=== PATIENT | female | born 1950 | race Caucasian/White ===

== ENCOUNTER 2017-01-08 19:36 | Observation (INO) ==
[2017-01-08] MEDS ORDERED: 0.9 % Sodium Chloride 1,000 ML ONE (19:53)
[2017-01-08] MEDS ORDERED: *HR* Promethazine 25 MG/ML VIAL IVP ONE (20:27)
[2017-01-08] MEDS ORDERED: 0.9 % Sodium Chloride 1,000 ML IVC ONE (20:27)
[2017-01-08] MEDS ORDERED: Ketorolac 30 MG/ML VIAL IV ONE (20:27)
--- NOTE | 2017-01-08 20:28 | Emergency Department Note ---
Disposition Clinical Impression: Chest pain Disposition: Admitted As Inpatient Condition: Fair Referrals: Edie Andrea MD [Primary Care Provider] - Forms: ED Satisfaction Letter Time of Disposition: 00:03 (chani rodríguez) Chest Pain HPI - General Chief Complaint: ED Chest Pain Stated Complaint: Chest Pain Time Seen by Provider: 01/08/17 19:37 Source: patient Mode of arrival: ambulatory Limitations: no limitations Vital Signs Reviewed: Yes Nursing Notes Reviewed: Yes - History of Present Illness HPI Narrative: History of chest pestered intermittently comes and goes and nausea no vomiting no diaphoresis no rash lesions pain worse with respiration worse with movement nothing seems to make it better this is to make it worse his been having symptoms off and on for Pt complaint: chest pain 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 Denies: vomiting, diaphoresis, dyspnea, sense of impending doom, syncope, fever, cough, leg swelling Treatments prior to arrival chest pain: aspirin - Related Data Home Medications Medication Instructions Recorded Confirmed Gabapentin [Neurontin] 300 mg PO TID 05/14/15 09/16/16 Tamoxifen [Nolvadex] 20 mg PO DAILY 05/14/15 09/16/16 Venlafaxine [Effexor] 225 mg PO DAILY 05/14/15 09/16/16 Zolpidem [Ambien] 10 mg PO HS 05/14/15 09/16/16 Docusate [Colace] 200 mg PO HS PRN 08/25/15 09/16/16 Tizanidine [Zanaflex] 4 mg PO TID 08/25/15 09/16/16 Venlafaxine HCl [Venlafaxine HCl 150 mg PO DAILY 10/05/15 09/16/16 ER] Isosorbide MONOnitrate (24 HR) 30 mg PO DAILY 10/23/15 09/16/16 [Imdur] SUMAtriptan Succinate [Imitrex] 100 mg PO DAILY PRN 10/23/15 09/16/16 Amlodipine [Norvasc] 5 mg PO DAILY 06/15/16 09/16/16 Aspirin 325 mg PO DAILY 06/15/16 09/16/16 Atorvastatin [Lipitor] 20 mg PO HS 06/15/16 09/16/16 Dapsone 100 mg PO QAM 06/15/16 09/16/16 DiphenhydraMINE [Benadryl] 25 mg PO Q4HR 06/15/16 09/16/16 Ferrous Sulfate 65 mg PO QAM 06/15/16 09/16/16 Ibuprofen [Motrin] 600 mg PO Q6HR PRN 06/15/16 09/16/16 Levothyroxine [Synthroid] 25 mcg PO 0630 06/15/16 09/16/16 Lisinopril [Zestril] 10 mg PO DAILY 06/15/16 09/16/16 Metformin [Glucophage] 500 mg PO BIDWM 06/15/16 09/16/16 Nitroglycerin [Nitrostat] 0.4 mg SL PRN PRN 06/15/16 09/16/16 Omeprazole [PriLOSEC] 20 mg PO BIDAC 06/15/16 09/16/16 Prochlorperazine Maleate 10 mg PO Q6HR 06/15/16 09/16/16 [Compazine] Sennosides [Senna] 8.6 mg PO BID 06/15/16 09/16/16 Loratadine [Claritin] 10 mg PO QAM 09/16/16 09/16/16 Previous Rx's Medication Instructions Recorded Metoprolol [Lopressor] 25 mg PO BID #60 tablet 10/27/15 Allergies Allergy/AdvReac Type Severity Reaction Status Date / Time acetaminophen [From Tylenol] Allergy See Verified 08/25/15 16:09 Comments latex Allergy See Verified 08/25/15 16:09 Comments All systems ED: reviewed and negative except as stated. Constitutional: Denies: fever, chills, weakness Eyes: Denies: eye pain ENT ED: Denies: ear pain, congestion Cardiovascular: Reports: chest pain, dyspnea on exertion. Denies: palpitations Respiratory: Denies: cough, dyspnea, wheezes Gastrointestinal: Denies: abdominal pain, nausea, vomiting Genitourinary: Denies: urgency Musculoskeletal: Denies: neck pain Integumentary: Denies: abrasion Neurological: Denies: headache Psychiatric: Denies: anxiety Endocrine: Denies: heat or cold intolerance Chest Pain PMH - Past Medical History Medical history: Reports: arthritis, cancer, CHF, hyperlipidemia, hypertension, liver disease, migraine, myocardial infarction, TIA Surgical history: Reports: appendectomy, cancer surgery, other Psychiatric history: Reports: anxiety, depression 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, 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 - Social History Smoking Status: Never smoker Alcohol use: Reports: none Drug use: Reports: none Physical Exam - General Limitations: no limitations, altered mental status General appearance: alert, in no apparent distress, appears intoxicated - Head Head exam: normocephalic, normal inspection - Eye Eye exam: Present: normal appearance, PERRL, EOMI - ENT ENT exam: normal exam, normal oropharynx, mucous membranes moist - Neck Neck exam: Present: normal inspection, full ROM, trachea midline - Chest Chest inspection: Present: normal inspection, symmetric chest wall rise - Respiratory Respiratory exam: Present: normal lung sounds bilaterally - Cardiovascular Cardiovascular exam: Present: regular rate, normal rhythm, normal heart sounds - Abdominal Exam Abdominal exam: Present: soft, Non-Tender, normal bowel sounds. Absent: mass, pulsatile mass - Extremities Exam Extremities exam: Present: normal inspection, full ROM, tenderness, normal capillary refill - Expanded Lower Extremity Exam Gait: observed and normal - Back Exam Back exam: Present: normal inspection, full ROM. Absent: muscle spasm - Neurological Exam Neurological exam: Present: alert, oriented X3, CN II-XII intact, normal gait - Psychiatric Psychiatric exam: Present: normal affect, normal mood, anxious - Skin Skin exam: Present: warm, dry, intact, normal color Course Course Narrative: Patient was seen and examined patient's been resting comfortably during her period of time here in the emergency room and asked repeatedly after arrival here to the emergency room her pain is dropped to the 3-4 out of 10 nothing seems to make better nothing since to make worse we repeated troponin at 2 hours initial troponin because of the episode of chest pain and make sure there was no other elevated enzymes with a repeat troponin being negative and the PE study that having an elevated d-dimer with a PE study be negative the patient was admitted for observation patient was transferred to [facility] for further management Vital Signs Temperature 97.4 F L 01/08/17 19:37 Pulse Rate 90 01/08/17 19:37 Respiratory Rate 16 01/08/17 19:37 Blood Pressure 77/44 01/08/17 19:37 O2 Sat by Pulse Oximetry 98 01/08/17 19:37 Temperature 97.4 F L 01/08/17 19:37 Pulse Rate 92 01/08/17 21:47 Respiratory Rate 16 01/08/17 21:47 Blood Pressure 175/70 01/08/17 21:47 O2 Sat by Pulse Oximetry 94 01/08/17 21:47 Oxygen Delivery Oxygen Delivery Room Air Chest Pain - Differential Diagnosis Likely: chest pain - Medical Records Medical records reviewed: Yes I reviewed the patient's medical records. - Lab Data Lab results reviewed: Yes I reviewed the patient's lab results. Result diagrams: 01/08/17 20:51 01/08/17 20:51 Lab Results 01/08/17 01/08/17 01/08/17 Range/Units 20:51 20:51 20:51 WBC 8.3 (4.3-11.1) K/mcL RBC 4.18 (3.82-4.97) M/mcL Hgb 12.4 (11.5-15.4) g/dL Hct 38.7 (35.3-44.9) % MCV 92.6 (83.0-100.0) fL MCH 29.7 (28.0-33.3) pg MCHC 32.0 (31.6-35.5) g/dL RDW 13.6 (11.5-14.5) % Plt Count 273 (140-400) K/mcL MPV 10.2 (9.4-12.4) fL Immature Gran % 0.2 (0-4) % Seg Neutrophils % 55.0 % Lymphocytes % 32.2 % Monocytes % 10.7 % Eosinophils % 1.4 % Basophils % 0.5 % Neutrophils # 4.6 (1.6-8.9) K/mcL Lymphocytes # 2.7 (0.6-4.6) K/mcL Monocytes # 0.9 (0.0-1.3) K/mcL Eosinophils # 0.1 (0.0-0.6) K/mcL Basophils # 0.0 (0.0-0.2) K/mcL PT (9.4-12.1) Seconds INR APTT 31.7 (26.0-36.0) Seconds D-Dimer 752 H (0-500) ng/mLFEU Sodium 142 (136-145) mEq/L Potassium 3.5 (3.5-4.5) mEq/L Chloride 108 (98-109) mEq/L Carbon Dioxide 23 (19-29) mEq/L BUN 14 (7-20) mg/dL Creatinine 0.84 (0.57-1.11) mg/dL Est GFR ( Amer) > 60 (> 60) Est GFR (Non-Af Amer) > 60 (> 60) BUN/Creatinine Ratio 17 (6-26) Glucose 96 (70-99) mg/dL Calculated Osmolality 294 (280-300) Calcium 8.9 (8.6-10.8) mg/dL Troponin I (0-0.03) ng/mL TSH (0.350-4.840) mcIU/mL 01/08/17 01/08/17 01/08/17 Range/Units 20:51 20:51 20:51 WBC (4.3-11.1) K/mcL RBC (3.82-4.97) M/mcL Hgb (11.5-15.4) g/dL Hct (35.3-44.9) % MCV (83.0-100.0) fL MCH (28.0-33.3) pg MCHC (31.6-35.5) g/dL RDW (11.5-14.5) % Plt Count (140-400) K/mcL MPV (9.4-12.4) fL Immature Gran % (0-4) % Seg Neutrophils % % Lymphocytes % % Monocytes % % Eosinophils % % Basophils % % Neutrophils # (1.6-8.9) K/mcL Lymphocytes # (0.6-4.6) K/mcL Monocytes # (0.0-1.3) K/mcL Eosinophils # (0.0-0.6) K/mcL Basophils # (0.0-0.2) K/mcL PT 12.5 H (9.4-12.1) Seconds INR 1.2 APTT (26.0-36.0) Seconds D-Dimer (0-500) ng/mLFEU Sodium (136-145) mEq/L Potassium (3.5-4.5) mEq/L Chloride (98-109) mEq/L Carbon Dioxide (19-29) mEq/L BUN (7-20) mg/dL Creatinine (0.57-1.11) mg/dL Est GFR ( Amer) (> 60) Est GFR (Non-Af Amer) (> 60) BUN/Creatinine Ratio (6-26) Glucose (70-99) mg/dL Calculated Osmolality (280-300) Calcium (8.6-10.8) mg/dL Troponin I 0.04 H* (0-0.03) ng/mL TSH 3.176 (0.350-4.840) mcIU/mL 01/08/17 Range/Units 23:06 WBC (4.3-11.1) K/mcL RBC (3.82-4.97) M/mcL Hgb (11.5-15.4) g/dL Hct (35.3-44.9) % MCV (83.0-100.0) fL MCH (28.0-33.3) pg MCHC (31.6-35.5) g/dL RDW (11.5-14.5) % Plt Count (140-400) K/mcL MPV (9.4-12.4) fL Immature Gran % (0-4) % Seg Neutrophils % % Lymphocytes % % Monocytes % % Eosinophils % % Basophils % % Neutrophils # (1.6-8.9) K/mcL Lymphocytes # (0.6-4.6) K/mcL Monocytes # (0.0-1.3) K/mcL Eosinophils # (0.0-0.6) K/mcL Basophils # (0.0-0.2) K/mcL PT (9.4-12.1) Seconds INR APTT (26.0-36.0) Seconds D-Dimer (0-500) ng/mLFEU Sodium (136-145) mEq/L Potassium (3.5-4.5) mEq/L Chloride (98-109) mEq/L Carbon Dioxide (19-29) mEq/L BUN (7-20) mg/dL Creatinine (0.57-1.11) mg/dL Est GFR ( Amer) (> 60) Est GFR (Non-Af Amer) (> 60) BUN/Creatinine Ratio (6-26) Glucose (70-99) mg/dL Calculated Osmolality (280-300) Calcium (8.6-10.8) mg/dL Troponin I 0.04 H* (0-0.03) ng/mL TSH (0.350-4.840) mcIU/mL - Radiology Data Radiology results reviewed: Yes I reviewed the patient's radiology results. - EKG Data EKG results narrative: Sinus rhythm rate 86 NV 117 QRS 92 QT 345 axis -[address] segment elevation Heart Score - Score History: Slightly Suspicious EKG: Non Specific repolarisation Disturbance Age: Greater than 65 Risk Factors: 1-2 risk factors Troponin: 1-3x normal limit HEART Score Total: 5 Critical Care Time Critical Care Time: No
[2017-01-08 20:57] LABS: Basophils % 0.5 %; Eosinophils # 0.1 K/mcL (0.0-0.6); Eosinophils % 1.4 %; Hematocrit 38.7 % (35.3-44.9); Hemoglobin 12.4 g/dL (11.5-15.4); Immature Granulocytes % 0.2 % (0-4); Lymphocytes # 2.7 K/mcL (0.6-4.6); Lymphocytes % 32.2 %; Mean Corpuscular Hemoglobin 29.7 pg (28.0-33.3); Mean Corpuscular Volume 92.6 fL (83.0-100.0); Mean Platelet Volume 10.2 fL (9.4-12.4); Monocytes # 0.9 K/mcL (0.0-1.3); Monocytes % 10.7 %; Neutrophils # 4.6 K/mcL (1.6-8.9); Platelet Count 273 K/mcL (140-400); Red Blood Count 4.18 M/mcL (3.82-4.97); Red Cell Distribution Width 13.6 % (11.5-14.5)
[2017-01-08 21:16] LABS: Activated Partial Thrombo Time 31.7 Seconds (26.0-36.0)
[2017-01-08 21:18] LABS: BUN/Creatinine Ratio 17 (6-26); Blood Urea Nitrogen 14 mg/dL (7-20); Calcium 8.9 mg/dL (8.6-10.8); Carbon Dioxide 23 mEq/L (19-29); Chloride 108 mEq/L (98-109); Glucose 96 mg/dL (70-99); Osmolality,Calculated 294 (280-300); Potassium 3.5 mEq/L (3.5-4.5); Sodium 142 mEq/L (136-145); eGFR For African Americans > 60 (> 60); eGFR For Non-African Americans > 60 (> 60)
[2017-01-08 21:22] LABS: INR 1.2; Prothrombin Time 12.5 Seconds (9.4-12.1)
[2017-01-09] MEDS ORDERED: Ibuprofen 600 MG TABLET PO PRN (01:01)
[2017-01-09] MEDS ORDERED: Naloxone 0.4 MG/ML INJ IVP PRN (01:01)
[2017-01-09] MEDS ORDERED: Ondansetron 4 MG/2 ML VIAL IVP PRN (01:01)
[2017-01-09] MEDS: 0.9 % Sodium Chloride 1,000 ML IVC SCH ×2 (01:31→12:45)
[2017-01-09 05:33] LABS: Basophils % 0.5 %; Eosinophils # 0.1 K/mcL (0.0-0.6); Eosinophils % 1.5 %; Hematocrit 36.3 % (35.3-44.9); Hemoglobin 11.7 g/dL (11.5-15.4); Immature Granulocytes % 0.4 % (0-4); Lymphocytes # 2.9 K/mcL (0.6-4.6); Lymphocytes % 38.9 %; Mean Corpuscular HGB Conc 32.2 g/dL (31.6-35.5); Mean Corpuscular Hemoglobin 29.8 pg (28.0-33.3); Mean Corpuscular Volume 92.6 fL (83.0-100.0); Mean Platelet Volume 10.6 fL (9.4-12.4); Monocytes # 0.8 K/mcL (0.0-1.3); Monocytes % 10.8 %; Neutrophils # 3.5 K/mcL (1.6-8.9); Platelet Count 279 K/mcL (140-400); Red Blood Count 3.92 M/mcL (3.82-4.97); Red Cell Distribution Width 13.7 % (11.5-14.5); Segmented Neutrophils % 47.9 %
[2017-01-09 05:55] LABS: BUN/Creatinine Ratio 14 (6-26); Blood Urea Nitrogen 11 mg/dL (7-20); Calcium 8.4 mg/dL (8.6-10.8); Carbon Dioxide 21 mEq/L (19-29); Chloride 112 mEq/L (98-109); Glucose 100 mg/dL (70-99); Osmolality,Calculated 297 (280-300); Potassium 3.9 mEq/L (3.5-4.5); Sodium 144 mEq/L (136-145); eGFR For African Americans > 60 (> 60); eGFR For Non-African Americans > 60 (> 60)
[2017-01-09] MEDS: Levothyroxine 25 MCG TABLET PO SCH (06:30)
[2017-01-09] MEDS ORDERED: Isosorbide MONOnitrate (24 HR) 30 MG TAB.ER.24H PO SCH ×2 (09:00→17:28)
[2017-01-09] MEDS ORDERED: Loratadine 10 MG TABLET PO SCH (09:00)
[2017-01-09] MEDS ORDERED: Venlafaxine XR (24 HR) 150 MG CAP.ER.24H PO SCH (09:00)
[2017-01-09] MEDS: Sennosides 8.6 MG TABLET PO SCH ×2 (09:09→21:36)
[2017-01-09] MEDS: Aspirin 325 MG TABLET PO SCH (09:09)
[2017-01-09] MEDS: Gabapentin 300 MG CAPSULE PO SCH ×3 (09:10→21:35)
[2017-01-09] MEDS: DAPSONE 100 MG PO SCH (09:12)
[2017-01-09] MEDS ORDERED: Permethrin Cream Rinse 60 ML LIQUID TP ONE (09:50)
[2017-01-09] MEDS: Venlafaxine XR (24 HR) 150 MG CAP.ER.24H PO SCH (12:39)
--- NOTE | 2017-01-09 17:02 | Internal Med History&Physical ---
Date of Encounter: 01/09/17 Time of Encounter: 16:30 Assessment and Plan (1) Chest pain Current visit: Yes Status: Acute Repeat cardiac enzymes were ordered through emergency room. Increase metoprolol and isosorbide doses. Further workup will be done as needed. Qualifiers: Chest pain type: unspecified Qualified Code(s): R07.9 - Chest pain, unspecified (2) Hypertension Current visit: No Status: Chronic Blood pressures are suboptimally controlled. Will increase metoprolol and lisinopril dose. Continue amlodipine at present dose. Qualifiers: Hypertension type: essential hypertension Qualified Code(s): I10 - Essential (primary) hypertension Internal Medicine - H&P: HPI Chief complaint: Chest pain Admitted From: Home Plans for Post Hospital Care: Home History of present illness: Ms. Palcaio is a 66 year old female who came to emergency room complaining of onset of chest discomfort approximately 4 PM while leisurely walking outdoors. She describes the discomfort as a squeezing sensation in her left upper chest area. When there was no improvement after 2-1/2 hours since she came to emergency room. She was evaluated and admitted to [facility] for ongoing care needs. She states she has had previous similar episodes of discomfort when she walks or does other exertional activities. She thinks the episodes are occurring more frequently over the past few months. She has not used a nitroglycerin pill in the past few weeks however. She has known ASHD status post VT's in July 2013 in January 2015. She reports a heart catheter January 2015 at [facility] following that VT showed a 40% stenosis in one artery. No intervention was done. Her cardiovascular history is significant otherwise for hypertension and DVT many years ago. She reports diagnosis of heart failure but an echocardiogram at [facility] 09/29/2016 showed LVEF of 60% with mild diastolic dysfunction. The E/A ratio was 0.8. Left atrium was reported mildly dilated but no LA size was recorded. Past Med Surg Social Fam HX - Past Medical History Medical history: arthritis, cancer, CHF, hyperlipidemia, hypertension, liver disease, migraine, myocardial infarction, TIA Psychiatric history: anxiety, depression - Past Surgical History Surgical History: appendectomy, cancer surgery, other - Social History Smoking Status: Never smoker Smokeless Tobacco Status: No Alcohol use: none Drug use: none - Family History Mother Family Member Ethnicity: Non- Living Status: Still Living Hx Family Cardiac Disorders: Yes Hx Family Neurologic Disorders: Yes (STROKES) Internal Medicine - H&P: Meds Gabapentin [Neurontin] 300 mg PO TID 05/14/15 [History] Tamoxifen [Nolvadex] 20 mg PO DAILY 05/14/15 [History] Venlafaxine [Effexor] 225 mg PO DAILY 05/14/15 [History] Zolpidem [Ambien] 10 mg PO HS 05/14/15 [History] Docusate [Colace] 200 mg PO HS PRN 08/25/15 [History] Tizanidine [Zanaflex] 4 mg PO TID 08/25/15 [History] Venlafaxine HCl [Venlafaxine HCl ER] 150 mg PO DAILY 10/05/15 [History] Isosorbide MONOnitrate (24 HR) [Imdur] 30 mg PO DAILY 10/23/15 [History] SUMAtriptan Succinate [Imitrex] 100 mg PO DAILY PRN 10/23/15 [History] Metoprolol [Lopressor] 25 mg PO BID #60 tablet 10/27/15 [Rx] Amlodipine [Norvasc] 5 mg PO DAILY 06/15/16 [History] Aspirin 325 mg PO DAILY 06/15/16 [History] Atorvastatin [Lipitor] 20 mg PO HS 06/15/16 [History] Dapsone 100 mg PO QAM 06/15/16 [History] DiphenhydraMINE [Benadryl] 25 mg PO Q4HR 06/15/16 [History] Ferrous Sulfate 65 mg PO QAM 06/15/16 [History] Ibuprofen [Motrin] 600 mg PO Q6HR PRN 06/15/16 [History] Levothyroxine [Synthroid] 25 mcg PO 0630 06/15/16 [History] Lisinopril [Zestril] 10 mg PO DAILY 06/15/16 [History] Metformin [Glucophage] 500 mg PO BIDWM 06/15/16 [History] Nitroglycerin [Nitrostat] 0.4 mg SL PRN PRN 06/15/16 [History] Omeprazole [PriLOSEC] 20 mg PO BIDAC 06/15/16 [History] Prochlorperazine Maleate [Compazine] 10 mg PO Q6HR 06/15/16 [History] Sennosides [Senna] 8.6 mg PO BID 06/15/16 [History] Loratadine [Claritin] 10 mg PO QAM 09/16/16 [History] Allergies acetaminophen [From Tylenol] Allergy (Verified 08/25/15 16:09) See Comments liver problems latex Allergy (Verified 08/25/15 16:09) See Comments sensitivity All Systems PM: A 10-system review of systems was performed and is negative for pertinent findings except as documented above in the HPI. Review of systems: Gen.: Her weight has decreased from 76.34 kg 10/27/2015 to 74.049 kg today Cardiovascular: As per history of present illness Respiratory: She is a lifelong nonsmoker and has no known chronic lung disease. She states she was scheduled for evaluation for obstructive sleep apnea in June 2015 but did not get to the appointment GI: She has a diagnosis of CORNELL. She denies other disorders of her liver gallbladder or exocrine pancreas : She had hematuria in the past. She denies known chronic kidney disease or kidney stones. She was hospitalized at [facility] October 2015 with azotemia which resolved prior to discharge. Neurologic: She claims she had a mini stroke December 2014 and another one in 2016 but symptoms completely resolved. She has had no other large distribution strokes or seizures. She claims she has been diagnosed with neuropathy but states no workup was done for etiology. Endocrine: She states she was diagnosed with DM 2 in mid 2014. She has hypothyroidism and hyperlipidemia. Hematology/oncology: She has anemia at the October [address] [facility] hospitalization which has now resolved. She states she had left mastectomy done July 2010 and has been on tamoxifen since then. She is presumed cancer free. Psychiatric: She has anxiety and depression but denies other mental health issues Musk skeletal: She has DJD and osteopenia - Constitutional Vitals: Temp Pulse Resp BP Pulse Ox 98.9 F 63 16 167/78 92 01/09/17 11:49 01/09/17 11:49 01/09/17 11:49 01/09/17 11:49 01/09/17 11:49 Exam: Gen.: She is a well-developed well-nourished female who appears in no severe distress at present time. HEENT: Head is atraumatic and normocephalic. Eyes: EOMI. There is no scleral icterus. Mouth: Mucosa is moist. Neck: Supple and nontender. There is no thyromegaly or adenopathy noted. Heart: Regular without murmurs gallops or ectopics. Lungs: No wheezes or crackles are heard. Abdomen: Soft and nontender. No masses or guarding are noted. Chest: She has mild tenderness in her left upper chest wall on light compression which she states similar to pain she had at home Extremities: There is no cyanosis edema or clubbing noted. Dorsalis pedis and posttibial pulses are 1-2 over 2 bilaterally. Neurologic: Mental status: She is talkative and a good historian. Cranial nerves: Smile is symmetric. Forehead wrinkles bilaterally. Tongue protrudes midline. EOMI. Motor: There is no pronator drift. Cerebellar: Finger to nose is intact bilaterally. Skin: Warm and dry Internal Med - H&P Results - Labs CBC & Chem 7: 01/09/17 04:11 01/09/17 04:11 Labs: Short CBC 01/09/17 Range/Units 04:11 WBC 7.3 (4.3-11.1) K/mcL Hgb 11.7 (11.5-15.4) g/dL Hct 36.3 (35.3-44.9) % Plt Count 279 (140-400) K/mcL Neutrophils # 3.5 (1.6-8.9) K/mcL BMP 01/09/17 04:11 Sodium 144 Potassium 3.9 Chloride 112 H Carbon Dioxide 21 BUN 11 Creatinine 0.80 Glucose 100 H Calcium 8.4 L Cardiac Enzymes 01/09/17 01/09/17 Range/Units 04:11 09:50 Troponin I 0.04 H* 0.04 H* (0-0.03) ng/mL
[2017-01-10] MEDS: Levothyroxine 25 MCG TABLET PO SCH (04:59)
[2017-01-10 07:17] VITALS: BP 151/77
[2017-01-10] MEDS: Gabapentin 300 MG CAPSULE PO SCH (08:51)
[2017-01-10] MEDS: Aspirin 325 MG TABLET PO SCH (08:51)
[2017-01-10] MEDS: Sennosides 8.6 MG TABLET PO SCH (08:52)
[2017-01-10] MEDS: Venlafaxine XR (24 HR) 150 MG CAP.ER.24H PO SCH (08:53)
[2017-01-10] MEDS: DAPSONE 100 MG PO SCH (08:55)
--- NOTE | 2017-01-10 09:31 | Discharge Summary ---
Date of Encounter: 01/10/17 Time of Encounter: 09:20 - Discharge Diagnosis (1) Chest pain Priority: Primary Status: Resolved Qualifiers: Chest pain type: unspecified Qualified Code(s): R07.9 - Chest pain, unspecified (2) Hypertension Priority: Secondary Status: Chronic Qualifiers: Hypertension type: essential hypertension Qualified Code(s): I10 - Essential (primary) hypertension - Discharge Medications Prescriptions: Isosorbide MONOnitrate (24 HR) [Imdur] 60 mg PO DAILY #30 tab.er.24h Metoprolol [Lopressor] 50 mg PO BID #60 tablet Home Medications: Gabapentin [Neurontin] 300 mg PO TID 05/14/15 [History] Tamoxifen [Nolvadex] 20 mg PO DAILY 05/14/15 [History] Venlafaxine [Effexor] 225 mg PO DAILY 05/14/15 [History] Zolpidem [Ambien] 10 mg PO HS 05/14/15 [History] Docusate [Colace] 200 mg PO HS PRN 08/25/15 [History] Tizanidine [Zanaflex] 4 mg PO TID 08/25/15 [History] Venlafaxine HCl [Venlafaxine HCl ER] 150 mg PO DAILY 10/05/15 [History] SUMAtriptan Succinate [Imitrex] 100 mg PO DAILY PRN 10/23/15 [History] Amlodipine [Norvasc] 5 mg PO DAILY 06/15/16 [History] Aspirin 325 mg PO DAILY 06/15/16 [History] Atorvastatin [Lipitor] 20 mg PO HS 06/15/16 [History] Dapsone 100 mg PO QAM 06/15/16 [History] DiphenhydraMINE [Benadryl] 25 mg PO Q4HR 06/15/16 [History] Ferrous Sulfate 65 mg PO QAM 06/15/16 [History] Levothyroxine [Synthroid] 25 mcg PO 0630 06/15/16 [History] Lisinopril [Zestril] 10 mg PO DAILY 06/15/16 [History] Metformin [Glucophage] 500 mg PO BIDWM 06/15/16 [History] Nitroglycerin [Nitrostat] 0.4 mg SL PRN PRN 06/15/16 [History] Omeprazole [PriLOSEC] 20 mg PO BIDAC 06/15/16 [History] Prochlorperazine Maleate [Compazine] 10 mg PO Q6HR 06/15/16 [History] Sennosides [Senna] 8.6 mg PO BID 06/15/16 [History] Loratadine [Claritin] 10 mg PO QAM 09/16/16 [History] Isosorbide MONOnitrate (24 HR) [Imdur] 60 mg PO DAILY #30 tab.er.24h 01/10/17 [ Rx] Metoprolol [Lopressor] 50 mg PO BID #60 tablet 01/10/17 [Rx] Allergies/Adverse Reactions: Allergies acetaminophen [From Tylenol] Allergy (Verified 08/25/15 16:09) See Comments liver problems latex Allergy (Verified 08/25/15 16:09) See Comments sensitivity Date of admission: 01/09/17 00:28 Primary care physician: Edie Andera - Patient Status Disposition: Home, Self-Care Condition: Fair Functional capacity at discharge: independent ambulation Overall status at discharge: patient is back to baseline - Discharge Instructions Instructions: Chest Pain (DC), Syncope (DC) Follow Up With: Edie Andrea MD [Primary Care Provider] - 1 week - Diet and Activity Activity: resume usual activities as tolerated Diet: advance to your usual diet Hospital course: Ms. Palacio is a 66 year old female who came to emergency room complaining of onset of chest discomfort approximately 4 PM while leisurely walking outdoors. She describes the discomfort as a squeezing sensation in her left upper chest area. When there was no improvement after 2-1/2 hours since she came to emergency room. She was evaluated and admitted to [facility] for ongoing care needs. Initial orders were written by the emergency room physician. I saw her on January 09 and performed a history and physical. Repeat cardiac enzymes showed no change from baseline levels to indicate myocardial damage. I increased her isosorbide and metoprolol doses. Her chest pain had resolved by the time I saw her on January 10. There were no new problems and she felt stable for discharge home. She will follow with her PCP Dr. Andrea within 1 week. - Time Spent with Patient Total time spent providing and/or coordinating discharge services: - Constitutional Vitals: Temp Pulse Resp BP Pulse Ox 98.8 F 63 16 151/77 97 01/10/17 07:10 01/10/17 07:10 01/10/17 07:10 01/10/17 07:10 01/10/17 07:10
--- NOTE | 2017-01-10 17:44 | Electrocardiograph Report ---
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
== END 2017-01-10 11:37 | disposition home or self-care (01) ==
LOC: INPPIK 19:36 → EMEROOPIK 19:36 → INPPIK 01-09 00:44
PROVIDERS: ADMIT Internal Medicine; ATTEND Internal Medicine

== ENCOUNTER 2017-05-02 19:29 | Observation (INO) ==
[2017-05-02] MEDS ORDERED: Aspirin 81 MG TAB.CHEW PO ONE (19:46)
--- NOTE | 2017-05-02 19:49 | Emergency Department Note ---
Disposition Clinical Impression: Chest pain Qualifiers: Chest pain type: precordial pain Qualified Code(s): R07.2 - Precordial pain Disposition: Admitted As Inpatient Condition: Good Referrals: Edie Andrea MD [Primary Care Provider] - Forms: ED Satisfaction Letter Time of Disposition: 00:04 Chest Pain HPI - General Chief Complaint: ED Chest Pain Stated Complaint: CP Time Seen by Provider: 05/02/17 19:40 Source: patient, EMS Mode of arrival: ambulatory Limitations: no limitations Vital Signs Reviewed: Yes Nursing Notes Reviewed: Yes - History of Present Illness HPI Narrative: 67-year-old white female with left-sided chest pain that started yesterday morning. It has been constant since then, intermittently better and worse. It is a level VIII now. She been nauseated, no vomiting. No shortness of breath. She notices some increase in pain with movement. No change with food intake. She has not taken anything for pain. She states she has had 4 or 5 previous heart attacks. She states the pain has been different each time, and she is not sure if this pain is similar. Pt complaint: chest pain Onset (ago): day(s) Duration: constant (2) Onset: during rest Pain Location: left chest Severity: moderate Severity scale (1-10): 8 Quality: heaviness Pain Radiation: none Improves with: remaining still Worsens with: palpation, movement Context: other Associated symptoms: Reports: nausea Treatments prior to arrival chest pain: none - Related Data Home Medications Medication Instructions Recorded Confirmed Gabapentin [Neurontin] 300 mg PO TID 05/14/15 09/16/16 Tamoxifen [Nolvadex] 20 mg PO DAILY 05/14/15 09/16/16 Venlafaxine [Effexor] 225 mg PO DAILY 05/14/15 09/16/16 Zolpidem [Ambien] 10 mg PO HS 05/14/15 09/16/16 Docusate [Colace] 200 mg PO HS PRN 08/25/15 09/16/16 Tizanidine [Zanaflex] 4 mg PO TID 08/25/15 09/16/16 Venlafaxine HCl [Venlafaxine HCl 150 mg PO DAILY 10/05/15 09/16/16 ER] SUMAtriptan Succinate [Imitrex] 100 mg PO DAILY PRN 10/23/15 09/16/16 Aspirin 325 mg PO DAILY 06/15/16 09/16/16 Atorvastatin [Lipitor] 20 mg PO HS 06/15/16 09/16/16 Dapsone 100 mg PO QAM 06/15/16 09/16/16 DiphenhydraMINE [Benadryl] 25 mg PO Q4HR 06/15/16 09/16/16 Ferrous Sulfate 65 mg PO QAM 06/15/16 09/16/16 Levothyroxine [Synthroid] 25 mcg PO 0630 06/15/16 09/16/16 Lisinopril [Zestril] 10 mg PO DAILY 06/15/16 09/16/16 Nitroglycerin [Nitrostat] 0.4 mg SL PRN PRN 06/15/16 09/16/16 Omeprazole [PriLOSEC] 20 mg PO BIDAC 06/15/16 09/16/16 Prochlorperazine Maleate 10 mg PO Q6HR 06/15/16 09/16/16 [Compazine] Sennosides [Senna] 8.6 mg PO BID 06/15/16 09/16/16 amLODIPine [Norvasc] 5 mg PO DAILY 06/15/16 09/16/16 metFORMIN [Glucophage] 500 mg PO BIDWM 06/15/16 09/16/16 Loratadine [Claritin] 10 mg PO QAM 09/16/16 09/16/16 Previous Rx's Medication Instructions Recorded Isosorbide MONOnitrate (24 HR) 60 mg PO DAILY #30 tab.er.24h 01/10/17 [Imdur] Metoprolol [Lopressor] 50 mg PO BID #60 tablet 01/10/17 Allergies Allergy/AdvReac Type Severity Reaction Status Date / Time acetaminophen [From Tylenol] Allergy See Verified 05/02/17 19:30 Comments latex Allergy See Verified 05/02/17 19:30 Comments All systems ED: reviewed and negative except as stated. Constitutional: Denies: fever, chills ENT ED: Denies: ear pain, throat pain Cardiovascular: Reports: chest pain. Denies: palpitations Respiratory: Denies: cough, dyspnea Gastrointestinal: Reports: nausea. Denies: abdominal pain, vomiting Genitourinary: Denies: urgency, dysuria, frequency Musculoskeletal: Denies: back pain, neck pain Neurological: Denies: headache, weakness, numbness, paresthesias Chest Pain PMH - Past Medical History Medical history: Reports: arthritis, cancer, CHF, hyperlipidemia, hypertension, liver disease, migraine, myocardial infarction, TIA Surgical history: Reports: appendectomy, cancer surgery, other Psychiatric history: Reports: anxiety, depression [employer] MECH[employer]IC history: Reports: no [employer] MECH[employer]IC history, other - Social History Smoking Status: Never smoker Alcohol use: Reports: none Drug use: Reports: none Physical Exam - General Limitations: no limitations General appearance: alert, in no apparent distress - Head Head exam: atraumatic, normocephalic - Eye Eye exam: Present: PERRL, EOMI. Absent: scleral icterus, conjunctival injection - ENT ENT exam: normal oropharynx, mucous membranes moist - Neck Neck exam: Present: normal inspection, full ROM, trachea midline. Absent: lymphadenopathy - Chest Chest inspection: Present: normal inspection, symmetric chest wall rise, tenderness (Minimal left parasternal tenderness.) - Respiratory Respiratory exam: Present: normal lung sounds bilaterally. Absent: respiratory distress, wheezes - Cardiovascular Cardiovascular exam: Present: regular rate, normal rhythm, normal heart sounds - Abdominal Exam Abdominal exam: Present: soft, Non-Tender - Extremities Exam Extremities exam: Present: normal inspection, full ROM, normal capillary refill. Absent: tenderness, pedal edema, calf tenderness - Neurological Exam Neurological exam: Present: alert, oriented X3. Absent: motor sensory deficit - Psychiatric Psychiatric exam: Present: normal affect, normal mood - Skin Skin exam: Present: warm, dry, intact, normal color. Absent: rash, diaphoresis , erythema Course - Reevaluation(s) Reevaluation #1: No change in pain with sublingual NTG. Time: 20:39 Reevaluation #2: Discussed with Dr. Marino. He is accepting the patient for observation admission for monitoring and serial enzymes. Time: 00:03 Reevaluation #3: Pain improved with the Toradol, mild discomfort remaining. Time: 00:04 Vital Signs Temperature 97.7 F 05/02/17 19:31 Pulse Rate 76 05/02/17 19:31 Respiratory Rate 14 05/02/17 19:31 Blood Pressure 146/70 05/02/17 19:31 O2 Sat by Pulse Oximetry 96 05/02/17 19:31 Temperature 97.7 F 05/02/17 19:31 Pulse Rate 70 05/03/17 00:02 Respiratory Rate 16 05/03/17 00:02 Blood Pressure 128/66 05/03/17 00:02 O2 Sat by Pulse Oximetry 94 05/03/17 00:02 Oxygen Delivery Oxygen Delivery Room Air Chest Pain - MDM Narrative Medical decision making narrative: Differential includes but is not limited to chest wall pain, angina, unstable angina, myocardial infarction, pulmonary embolus, esophageal spasm. - Medical Records Medical records reviewed: Yes I reviewed the patient's medical records. - Lab Data Lab results reviewed: Yes I reviewed the patient's lab results. Result diagrams: 05/02/17 19:57 05/02/17 19:57 Lab Results 05/02/17 05/02/17 05/02/17 Range/Units 19:57 19:57 19:57 WBC 7.8 (4.3-11.1) K/mcL RBC 4.41 (3.82-4.97) M/mcL Hgb 13.2 (11.5-15.4) g/dL Hct 40.3 (35.3-44.9) % MCV 91.4 (83.0-100.0) fL MCH 29.9 (28.0-33.3) pg MCHC 32.8 (31.6-35.5) g/dL RDW 13.4 (11.5-14.5) % Plt Count 250 (140-400) K/mcL MPV 9.8 (9.4-12.4) fL Immature Gran % 0.3 (0-4) % Seg Neutrophils % 54.7 % Lymphocytes % 32.0 % Monocytes % 11.0 % Eosinophils % 1.4 % Basophils % 0.6 % Neutrophils # 4.3 (1.6-8.9) K/mcL Lymphocytes # 2.5 (0.6-4.6) K/mcL Monocytes # 0.9 (0.0-1.3) K/mcL Eosinophils # 0.1 (0.0-0.6) K/mcL Basophils # 0.1 (0.0-0.2) K/mcL D-Dimer 496 (0-500) ng/mLFEU Sodium 141 (136-145) mEq/L Potassium 3.9 (3.5-4.5) mEq/L Chloride 107 (98-109) mEq/L Carbon Dioxide 22 (19-29) mEq/L BUN 17 (7-20) mg/dL Creatinine 0.83 (0.57-1.11) mg/dL Est GFR ( Amer) > 60 (> 60) Est GFR (Non-Af Amer) > 60 (> 60) BUN/Creatinine Ratio 20 (6-26) Glucose 131 H (70-99) mg/dL Calculated Osmolality 295 (280-300) Calcium 9.0 (8.6-10.8) mg/dL Total Bilirubin 0.3 (0.2-1.2) mg/dL AST 35 H (5-34) Units/L ALT 35 (0-55) Units/L Alkaline Phosphatase 104 (38-126) Units/L Troponin I (0-0.03) ng/mL B-Natriuretic Peptide (0-100) pg/mL Serum Total Protein 6.8 (6.0-8.3) g/dL Albumin 3.4 L (3.5-5.0) g/dL Globulin 3.4 (2.4-3.5) g/dL Albumin/Globulin Ratio 1.0 L (1.1-2.2) 05/02/17 05/02/17 05/02/17 Range/Units 19:57 19:57 21:08 WBC (4.3-11.1) K/mcL RBC (3.82-4.97) M/mcL Hgb (11.5-15.4) g/dL Hct (35.3-44.9) % MCV (83.0-100.0) fL MCH (28.0-33.3) pg MCHC (31.6-35.5) g/dL RDW (11.5-14.5) % Plt Count (140-400) K/mcL MPV (9.4-12.4) fL Immature Gran % (0-4) % Seg Neutrophils % % Lymphocytes % % Monocytes % % Eosinophils % % Basophils % % Neutrophils # (1.6-8.9) K/mcL Lymphocytes # (0.6-4.6) K/mcL Monocytes # (0.0-1.3) K/mcL Eosinophils # (0.0-0.6) K/mcL Basophils # (0.0-0.2) K/mcL D-Dimer (0-500) ng/mLFEU Sodium (136-145) mEq/L Potassium (3.5-4.5) mEq/L Chloride (98-109) mEq/L Carbon Dioxide (19-29) mEq/L BUN (7-20) mg/dL Creatinine (0.57-1.11) mg/dL Est GFR ( Amer) (> 60) Est GFR (Non-Af Amer) (> 60) BUN/Creatinine Ratio (6-26) Glucose (70-99) mg/dL Calculated Osmolality (280-300) Calcium (8.6-10.8) mg/dL Total Bilirubin (0.2-1.2) mg/dL AST (5-34) Units/L ALT (0-55) Units/L Alkaline Phosphatase (38-126) Units/L Troponin I 0.03 0.04 H* (0-0.03) ng/mL B-Natriuretic Peptide 19 (0-100) pg/mL Serum Total Protein (6.0-8.3) g/dL Albumin (3.5-5.0) g/dL Globulin (2.4-3.5) g/dL Albumin/Globulin Ratio (1.1-2.2) 05/02/17 Range/Units 22:48 WBC (4.3-11.1) K/mcL RBC (3.82-4.97) M/mcL Hgb (11.5-15.4) g/dL Hct (35.3-44.9) % MCV (83.0-100.0) fL MCH (28.0-33.3) pg MCHC (31.6-35.5) g/dL RDW (11.5-14.5) % Plt Count (140-400) K/mcL MPV (9.4-12.4) fL Immature Gran % (0-4) % Seg Neutrophils % % Lymphocytes % % Monocytes % % Eosinophils % % Basophils % % Neutrophils # (1.6-8.9) K/mcL Lymphocytes # (0.6-4.6) K/mcL Monocytes # (0.0-1.3) K/mcL Eosinophils # (0.0-0.6) K/mcL Basophils # (0.0-0.2) K/mcL D-Dimer (0-500) ng/mLFEU Sodium (136-145) mEq/L Potassium (3.5-4.5) mEq/L Chloride (98-109) mEq/L Carbon Dioxide (19-29) mEq/L BUN (7-20) mg/dL Creatinine (0.57-1.11) mg/dL Est GFR ( Amer) (> 60) Est GFR (Non-Af Amer) (> 60) BUN/Creatinine Ratio (6-26) Glucose (70-99) mg/dL Calculated Osmolality (280-300) Calcium (8.6-10.8) mg/dL Total Bilirubin (0.2-1.2) mg/dL AST (5-34) Units/L ALT (0-55) Units/L Alkaline Phosphatase (38-126) Units/L Troponin I 0.02 (0-0.03) ng/mL B-Natriuretic Peptide (0-100) pg/mL Serum Total Protein (6.0-8.3) g/dL Albumin (3.5-5.0) g/dL Globulin (2.4-3.5) g/dL Albumin/Globulin Ratio (1.1-2.2) - Radiology Data Radiology results reviewed: Yes I reviewed the patient's radiology results. Impressions Chest X-Ray 05/02/17 19:46 IMPRESSION: 1. No acute abnormality. D/ / Sarath Lemus MD / Sarath Lemus MD Interpreting Provider: Sarath Lemus MD - EKG Data EKG attestation: Yes I reviewed and interpreted this EKG. EKG results narrative: Normal sinus rhythm, left axis deviation, voltage criteria for LVH, nonspecific ST-T wave changes. Rhythm strip shows sinus rhythm with rate of 77, a PA interval 145 ms, QRS 92 ms with no other ectopy is interpreted by me. This is compared to a tracing dated 01/08/17, no change. EKG #2: Sinus rhythm, rate of 69, nonspecific ST-T changes. Rhythm strip shows sinus rhythm with a rate of 69, PA interval 150 ms, QR congregation 70 ms with no other ectopy as interpreted by me. Unchanged from the tracing earlier today.
[2017-05-02] MEDS: Nitroglycerin 0.4 MG TAB.SUBL SL PRN ×3 (19:58→20:29)
[2017-05-02 20:02] LABS: Basophils # 0.1 K/mcL (0.0-0.2); Basophils % 0.6 %; Eosinophils # 0.1 K/mcL (0.0-0.6); Eosinophils % 1.4 %; Hematocrit 40.3 % (35.3-44.9); Hemoglobin 13.2 g/dL (11.5-15.4); Immature Granulocytes % 0.3 % (0-4); Lymphocytes # 2.5 K/mcL (0.6-4.6); Mean Corpuscular HGB Conc 32.8 g/dL (31.6-35.5); Mean Corpuscular Hemoglobin 29.9 pg (28.0-33.3); Mean Corpuscular Volume 91.4 fL (83.0-100.0); Mean Platelet Volume 9.8 fL (9.4-12.4); Monocytes # 0.9 K/mcL (0.0-1.3); Neutrophils # 4.3 K/mcL (1.6-8.9); Platelet Count 250 K/mcL (140-400); Red Blood Count 4.41 M/mcL (3.82-4.97); Red Cell Distribution Width 13.4 % (11.5-14.5); Segmented Neutrophils % 54.7 %
[2017-05-02 20:22] LABS: Alanine Aminotransferase 35 Units/L (0-55); Albumin 3.4 g/dL (3.5-5.0); Alkaline Phosphatase 104 Units/L (38-126); Aspartate Amino Transferase 35 Units/L (5-34); BUN/Creatinine Ratio 20 (6-26); Bilirubin,Total 0.3 mg/dL (0.2-1.2); Blood Urea Nitrogen 17 mg/dL (7-20); Carbon Dioxide 22 mEq/L (19-29); Chloride 107 mEq/L (98-109); Globulin 3.4 g/dL (2.4-3.5); Glucose 131 mg/dL (70-99); Osmolality,Calculated 295 (280-300); Potassium 3.9 mEq/L (3.5-4.5); Sodium 141 mEq/L (136-145); Total Protein 6.8 g/dL (6.0-8.3); eGFR For African Americans > 60 (> 60); eGFR For Non-African Americans > 60 (> 60)
[2017-05-02] MEDS ORDERED: Ketorolac 30 MG/ML VIAL IVP ONE (20:39)
[2017-05-02] MEDS ORDERED: Ondansetron 4 MG/2 ML VIAL IVP ONE ×2 (20:39→21:34)
[2017-05-02] MEDS ORDERED: *HR* Morphine 2 MG/ML SYRINGE IVP ONE (21:34)
[2017-05-03] MEDS ORDERED: *HR* Morphine 2 MG/ML SYRINGE IVP PRN (01:37)
[2017-05-03] MEDS ORDERED: Nitroglycerin 0.4 MG TAB.SUBL SL PRN ×2 (01:37)
[2017-05-03] MEDS ORDERED: Ondansetron 4 MG/2 ML VIAL IVP PRN (01:37)
[2017-05-03] MEDS ORDERED: SUMAtriptan succinate 50 MG TABLET PO PRN (01:37)
[2017-05-03] MEDS ORDERED: Naloxone 0.4 MG/ML INJ IVP PRN (01:37)
[2017-05-03] MEDS ORDERED: Acetaminophen 325 MG TABLET PO PRN (01:37)
[2017-05-03] MEDS ORDERED: Levothyroxine 25 MCG TABLET PO SCH (06:30)
[2017-05-03] MEDS ORDERED: *HR* Metformin 500 MG TABLET PO SCH (08:00)
[2017-05-03] MEDS ORDERED: amLODIPine 5 MG TABLET PO SCH (09:00)
[2017-05-03] MEDS ORDERED: Isosorbide MONOnitrate (24 HR) 60 MG TAB.ER.24H PO SCH (09:00)
[2017-05-03] MEDS ORDERED: Venlafaxine XR (24 HR) 150 MG CAP.ER.24H PO SCH (09:00)
[2017-05-03] MEDS ORDERED: Gabapentin 300 MG CAPSULE PO SCH (09:00)
[2017-05-03] MEDS ORDERED: tiZANidine 4 MG TABLET PO SCH (09:00)
[2017-05-03] MEDS ORDERED: Aspirin 325 MG TABLET PO SCH (09:00)
[2017-05-03] MEDS ORDERED: Loratadine 10 MG TABLET PO SCH (09:00)
[2017-05-03 10:23] VITALS: BP 118/75
--- NOTE | 2017-05-03 11:13 | Internal Med History&Physical ---
Date of Encounter: 05/03/17 Time of Encounter: 10:40 Assessment and Plan (1) Chest pain Current visit: No Status: Acute Repeat cardiac enzymes were ordered through emergency room. Suspect chest wall origin based on history and physical Qualifiers: Chest pain type: unspecified Qualified Code(s): R07.9 - Chest pain, unspecified Internal Medicine - H&P: HPI Chief complaint: Chest pain Admitted From: Home Plans for Post Hospital Care: Home History of present illness: Ms. Palacio is a 67 year old female who came to emergency room stating she had chest pain the morning of May 01 on awakening. She describes it as a pressure/soreness in her left upper chest area. It was severity of 9/10 time at onset. She denied taking any medication to relieve the pain. Seemed to wax and wane slightly over the day but was still present the following day when she awakened. She decided to come to emergency room the evening of May 02. She was evaluated and admitted to [facility] for ongoing care needs. She states the pain has decreased in severity to 6/10 level now. She states it is worse on inspiration. She reports slight dyspnea associated with the pain but no significant cough. She denies any unusual exercise or trauma to the area. She has known ASHD status post AK's in July 2013 in January 2015. She reports a heart catheter January 2015 at [facility] following that AK showed a 40% stenosis in one artery. No intervention was done. Her cardiovascular history is significant otherwise for hypertension and DVT many years ago. She reports diagnosis of heart failure but an echocardiogram at [facility] 09/29/2016 showed LVEF of 60% with mild diastolic dysfunction. The E/A ratio was 0.8. Left atrium was reported mildly dilated but no LA size was recorded. Past Med Surg Social Fam HX - Past Medical History Medical history: arthritis, cancer, CHF, hyperlipidemia, hypertension, liver disease, migraine, myocardial infarction, TIA Psychiatric history: anxiety, depression - Past Surgical History Surgical History: appendectomy, cancer surgery, other - Social History Smoking Status: Never smoker Smokeless Tobacco Status: No Alcohol use: none Drug use: none - Family History Mother Family Member Ethnicity: Non- Living Status: Hx Family Cardiac Disorders: Yes (hypertension, hyperlipidemia) Hx Family Cancer: Yes (breast) Hx Family Neurologic Disorders: Yes (STROKES) Internal Medicine - H&P: Meds Gabapentin [Neurontin] 300 mg PO TID 05/14/15 [History] Tamoxifen [Nolvadex] 20 mg PO DAILY 05/14/15 [History] Venlafaxine [Effexor] 225 mg PO DAILY 05/14/15 [History] Zolpidem [Ambien] 10 mg PO HS 05/14/15 [History] Tizanidine [Zanaflex] 4 mg PO TID 08/25/15 [History] Venlafaxine HCl [Venlafaxine HCl ER] 150 mg PO DAILY 10/05/15 [History] SUMAtriptan Succinate [Imitrex] 100 mg PO DAILY PRN 10/23/15 [History] Aspirin 325 mg PO DAILY 06/15/16 [History] Atorvastatin [Lipitor] 20 mg PO HS 06/15/16 [History] DiphenhydraMINE [Benadryl] 25 mg PO Q4HR 06/15/16 [History] Ferrous Sulfate 65 mg PO QAM 06/15/16 [History] Levothyroxine [Synthroid] 25 mcg PO 0630 06/15/16 [History] Lisinopril [Zestril] 10 mg PO DAILY 06/15/16 [History] Nitroglycerin [Nitrostat] 0.4 mg SL PRN PRN 06/15/16 [History] Omeprazole [PriLOSEC] 20 mg PO BIDAC 06/15/16 [History] Prochlorperazine Maleate [Compazine] 10 mg PO Q6HR 06/15/16 [History] amLODIPine [Norvasc] 5 mg PO DAILY 06/15/16 [History] metFORMIN [Glucophage] 500 mg PO BIDWM 06/15/16 [History] Loratadine [Claritin] 10 mg PO QAM 09/16/16 [History] Isosorbide MONOnitrate (24 HR) [Imdur] 60 mg PO DAILY #30 tab.er.24h 01/10/17 [ Rx] Metoprolol [Lopressor] 50 mg PO BID #60 tablet 01/10/17 [Rx] Docusate [Colace] 200 mg PO BID 05/03/17 [History] 3 Allergy/AdvReac Type Severity Reaction Status Date / Time acetaminophen [From Tylenol] Allergy See Verified 05/02/17 19:30 Comments latex Allergy See Verified 05/02/17 19:30 Comments All Systems PM: A 10-system review of systems was performed and is negative for pertinent findings except as documented above in the HPI. Review of systems: Review of systems from her December 2016 [facility] hospitalization were reviewed and revised as below. Gen.: Her weight has been stable since the December 2016 [facility] hospitalization at approximately 152 pounds. Cardiovascular: As per history of present illness Respiratory: She is a lifelong nonsmoker and has no known chronic lung disease. She states she was scheduled for evaluation for obstructive sleep apnea in June 2015 but did not get to the appointment GI: She has a diagnosis of CORNELL. She denies other disorders of her liver gallbladder or exocrine pancreas : She had hematuria in the past. She denies known chronic kidney disease or kidney stones. She was hospitalized at [facility] October 2015 with azotemia which resolved prior to discharge. Neurologic: She claims she had a mini stroke December 2014 and another one in 2016 but symptoms completely resolved. She has had no other large distribution strokes or seizures. She claims she has been diagnosed with neuropathy but states no workup was done for etiology. Endocrine: She states she was diagnosed with DM 2 in mid 2014. She has hypothyroidism and hyperlipidemia. Hematology/oncology: She has anemia at the October 2015 [facility] hospitalization which has now resolved. She states she had left mastectomy done July 2010 and has been on tamoxifen since then. She is presumed cancer free. She states she has oncology visit May 2017. Psychiatric: She has anxiety and depression but denies other mental health issues Musk skeletal: She has DJD and osteopenia - Constitutional Vitals: Temp Pulse Resp BP Pulse Ox 98.8 F 76 18 118/75 97 05/03/17 10:20 05/03/17 10:20 05/03/17 10:20 05/03/17 10:20 05/03/17 10:20 Exam: Gen.: She is a well-developed well-nourished female who appears in no severe distress at present time HEENT: Head is atraumatic and normocephalic. Eyes: EOMI. There is no scleral icterus. Mouth: Mucosa is moist. Neck: Supple and nontender. There is no thyromegaly or adenopathy noted. Heart: Regular without murmurs gallops or ectopics Lungs: No wheezes or crackles are heard. Chest: She has tenderness in her left upper chest wall to palpation stating "that is the pain" on palpation. Abdomen: Soft and nontender. No masses or guarding noted. Extremities: There is no cyanosis edema or clubbing noted. Dorsalis pedis and posterior tibial pulses are 1-2 over 2 bilaterally. Neurologic: Mental status: She is talkative and a good historian. Cranial nerves: Smile is symmetric. Forehead wrinkles bilaterally. Tongue protrudes midline. EOMI. Motor: There is no pronator drift. Cerebellar: Finger to nose is intact bilaterally. Skin: Warm and dry Internal Med - H&P Results - Labs CBC & Chem 7: 05/02/17 19:57 05/02/17 19:57 Labs: Cardiac Enzymes 05/03/17 05/03/17 Range/Units 02:15 07:33 Troponin I 0.03 0.02 (0-0.03) ng/mL
--- NOTE | 2017-05-03 11:24 | Discharge Summary ---
Date of Encounter: 05/03/17 Time of Encounter: 10:40 - Discharge Diagnosis (1) Chest pain Priority: Primary Status: Acute Qualifiers: Chest pain type: unspecified Qualified Code(s): R07.9 - Chest pain, unspecified - Discharge Medications Home Medications: Gabapentin [Neurontin] 300 mg PO TID 05/14/15 [History] Tamoxifen [Nolvadex] 20 mg PO DAILY 05/14/15 [History] Venlafaxine [Effexor] 225 mg PO DAILY 05/14/15 [History] Zolpidem [Ambien] 10 mg PO HS 05/14/15 [History] Tizanidine [Zanaflex] 4 mg PO TID 08/25/15 [History] Venlafaxine HCl [Venlafaxine HCl ER] 150 mg PO DAILY 10/05/15 [History] SUMAtriptan Succinate [Imitrex] 100 mg PO DAILY PRN 10/23/15 [History] Aspirin 325 mg PO DAILY 06/15/16 [History] Atorvastatin [Lipitor] 20 mg PO HS 06/15/16 [History] DiphenhydraMINE [Benadryl] 25 mg PO Q4HR 06/15/16 [History] Ferrous Sulfate 65 mg PO QAM 06/15/16 [History] Levothyroxine [Synthroid] 25 mcg PO 0630 06/15/16 [History] Lisinopril [Zestril] 10 mg PO DAILY 06/15/16 [History] Nitroglycerin [Nitrostat] 0.4 mg SL PRN PRN 06/15/16 [History] Omeprazole [PriLOSEC] 20 mg PO BIDAC 06/15/16 [History] Prochlorperazine Maleate [Compazine] 10 mg PO Q6HR 06/15/16 [History] amLODIPine [Norvasc] 5 mg PO DAILY 06/15/16 [History] metFORMIN [Glucophage] 500 mg PO BIDWM 06/15/16 [History] Loratadine [Claritin] 10 mg PO QAM 09/16/16 [History] Isosorbide MONOnitrate (24 HR) [Imdur] 60 mg PO DAILY #30 tab.er.24h 01/10/17 [ Rx] Metoprolol [Lopressor] 50 mg PO BID #60 tablet 01/10/17 [Rx] Docusate [Colace] 200 mg PO BID 05/03/17 [History] Allergies/Adverse Reactions: 3 Allergy/AdvReac Type Severity Reaction Status Date / Time acetaminophen [From Tylenol] Allergy See Verified 05/02/17 19:30 Comments latex Allergy See Verified 05/02/17 19:30 Comments Date of admission: 05/03/17 01:09 Primary care physician: Edie Andrea - Patient Status Disposition: Home, Self-Care Condition: Good Functional capacity at discharge: independent ambulation Overall status at discharge: patient is progressing back to baseline - Discharge Instructions Follow Up With: Edie Andrea MD [Primary Care Provider] - 1 week - Diet and Activity Activity: resume usual activities as tolerated Diet: advance to your usual diet Hospital course: Ms. Palacio is a 67 year old female who came to emergency room stating she had chest pain the morning of May 01 on awakening. She describes it as a pressure/soreness in her left upper chest area. It was severity of 9/10 time at onset. She denied taking any medication to relieve the pain. Seemed to wax and wane slightly over the day but was still present the following day when she awakened. She decided to come to emergency room the evening of May 02. She was evaluated and admitted to [facility] for ongoing care needs. Initial orders were written by the emergency room physician. I saw her the morning of May 03 and performed a history physical and discharge. Repeat cardiac enzymes showed no evidence of myocardial damage. When I saw her I did not think pain was likely to be of myocardial ischemic origin. The pain was reproduced on pressing on her chest wall. I felt she could be discharged home. She stated the pain level had already decreased to 6/10. I recommend she continue aspirin and use low amounts of Tylenol. I told her if she wished to try NSAIDs she should hold aspirin. She will follow with her PCP within one week. - Time Spent with Patient Total time spent providing and/or coordinating discharge services: - Constitutional Vitals: Temp Pulse Resp BP Pulse Ox 98.8 F 76 18 118/75 97 05/03/17 10:20 05/03/17 10:20 05/03/17 10:20 05/03/17 10:20 05/03/17 10:20
--- NOTE | 2017-05-03 18:11 | Electrocardiograph Report ---
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
--- NOTE | 2017-05-03 18:17 | Electrocardiograph Report ---
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
== END 2017-05-03 12:08 | disposition home or self-care (01) ==
LOC: EMEROOPIK 19:29 → INPPIK 19:29
PROVIDERS: ADMIT Internal Medicine; ATTEND Internal Medicine

== ENCOUNTER 2017-10-22 21:51 | Inpatient (IN) ==
[2017-10-22] MEDS ORDERED: 0.9 % Sodium Chloride 1,000 ML IVC ONE (22:34)
--- NOTE | 2017-10-22 22:34 | Emergency Department Note ---
Disposition Clinical Impression: Syncope due to orthostatic hypotension UTI (urinary tract infection) Qualifiers: Urinary tract infection type: site unspecified Hematuria presence: without hematuria Qualified Code(s): N39.0 - Urinary tract infection, site not specified Disposition: Admitted As Inpatient Condition: Fair Time of Disposition: : (Dr Marino) Syncope HPI - General Chief Complaint: ED Syncope Stated Complaint: possible syncope Source: patient, EMS Mode of arrival: EMS Limitations: no limitations Nursing Notes Reviewed: Yes Vital Signs Reviewed: Yes - History of Present Illness Pt Subjective Complaint: collapsed 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(s) Description of Event: other (The patient was standing and after using the bathroom when she felt faint and passed out.) Prodromal Symptoms: none Witnessed: no Context: standing up Injuries Sustained Associated with Event: head Current Symptoms: lightheaded, weakness History: other (Multiple diarrhea episodes the last 24 hours with decreased by mouth intake) Treatments prior to arrival: none - Related Data Home Medications Medication Instructions Recorded Confirmed Gabapentin [Neurontin] 300 mg PO TID 05/14/15 10/22/17 Tamoxifen [Nolvadex] 20 mg PO DAILY 05/14/15 10/22/17 Venlafaxine [Effexor] 225 mg PO DAILY 05/14/15 10/22/17 Zolpidem [Ambien] 10 mg PO HS 05/14/15 10/22/17 Tizanidine [Zanaflex] 4 mg PO TID 08/25/15 10/22/17 SUMAtriptan Succinate [Imitrex] 100 mg PO DAILY PRN 10/23/15 10/22/17 Aspirin 325 mg PO DAILY 06/15/16 10/22/17 Atorvastatin [Lipitor] 20 mg PO HS 06/15/16 10/22/17 DiphenhydraMINE [Benadryl] 25 mg PO Q4HR 06/15/16 10/22/17 Ferrous Sulfate 65 mg PO QAM 06/15/16 10/22/17 Levothyroxine [Synthroid] 25 mcg PO 0630 06/15/16 10/22/17 Lisinopril [Zestril] 10 mg PO DAILY 06/15/16 10/22/17 Nitroglycerin [Nitrostat] 0.4 mg SL PRN PRN 06/15/16 10/22/17 Prochlorperazine Maleate 10 mg PO Q6HR 06/15/16 10/22/17 [Compazine] amLODIPine [Norvasc] 5 mg PO DAILY 06/15/16 10/22/17 metFORMIN [Glucophage] 500 mg PO BIDWM 06/15/16 10/22/17 Loratadine [Claritin] 10 mg PO QAM 09/16/16 10/22/17 Docusate [Colace] 200 mg PO BID 05/03/17 10/22/17 Coreg 10/22/17 10/22/17 Previous Rx's Medication Instructions Recorded Isosorbide MONOnitrate (24 HR) 60 mg PO DAILY #30 tab.er.24h 01/10/17 [Imdur] Allergies Allergy/AdvReac Type Severity Reaction Status Date / Time acetaminophen [From Tylenol] Allergy See Verified 05/02/17 19:30 Comments latex Allergy See Verified 05/02/17 19:30 Comments All systems ED: reviewed and negative except as stated. 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 Absent: scleral icterus, conjunctival injection, nystagmus, miosis, mydriasis, periorbital swelling, periorbital tenderness - ENT ENT exam: normal exam, normal oropharynx, mucous membranes dry - Neck Neck exam: Present: normal inspection, full ROM, trachea midline. Absent: lymphadenopathy, thyromegaly - Respiratory Respiratory exam: Present: normal lung sounds bilaterally - Cardiovascular Cardiovascular exam: Present: regular rate, normal rhythm, normal heart sounds - Abdominal Exam Abdominal exam: Present: soft, Non-Tender, hyperactive bowel sounds - Extremities Exam Extremities exam: Present: normal inspection, full ROM, normal capillary refill - Neurological Exam Neurological exam: Present: alert, oriented X3, CN II-XII intact - Psychiatric Psychiatric exam: Present: normal affect, normal mood - Skin Skin exam: Present: warm, dry, intact, normal color Course Vital Signs Temperature 99.0 F 10/22/17 22:00 Pulse Rate 65 10/22/17 22:00 Respiratory Rate 18 10/22/17 22:00 Blood Pressure 96/53 10/22/17 22:00 O2 Sat by Pulse Oximetry 93 10/22/17 22:00 Temperature 97.6 F 10/24/17 10:28 Pulse Rate 81 10/24/17 10:28 Respiratory Rate 18 10/24/17 10:28 Blood Pressure 161/56 10/24/17 10:28 O2 Sat by Pulse Oximetry 98 10/24/17 10:28 Oxygen Delivery Oxygen Delivery Nasal Cannula Syncope - MDM Narrative Medical decision making narrative: Patient with dehydration most likely secondary to nausea, vomiting and diarrhea. She also has an associated UTI. The patient was given IV fluids which improved her vitals. The patient's repeat heart and lung, capillary refill, peripheral pulses and skin exam were unchanged. The patient will be admitted for further stabilization with IV fluids and antibiotics. The patient is amenable with current disposition and plan. - Differential Diagnosis Likely: syncope due to orthostatic hypotension - Medical Records Medical records reviewed: Yes I reviewed the patient's medical records. - Lab Data Lab results reviewed: Yes I reviewed the patient's lab results. Result diagrams: 10/24/17 04:40 10/24/17 04:40 Lab Results 10/22/17 10/22/17 10/22/17 Range/Units 10:28 10:28 10:28 WBC 16.0 H (4.3-11.1) K/mcL RBC 4.00 (3.82-4.97) M/mcL Hgb 11.9 (11.5-15.4) g/dL Hct 36.5 (35.3-44.9) % MCV 91.3 (83.0-100.0) fL MCH 29.8 (28.0-33.3) pg MCHC 32.6 (31.6-35.5) g/dL RDW 13.0 (11.5-14.5) % Plt Count 261 (140-400) K/mcL MPV 10.3 (9.4-12.4) fL Immature Gran % 0.3 (0-4) % Seg Neutrophils % 77.5 % Lymphocytes % 14.2 % Monocytes % 7.0 % Eosinophils % 0.6 % Basophils % 0.4 % Neutrophils # 12.4 H (1.6-8.9) K/mcL Lymphocytes # 2.3 (0.6-4.6) K/mcL Monocytes # 1.1 (0.0-1.3) K/mcL Eosinophils # 0.1 (0.0-0.6) K/mcL Basophils # 0.1 (0.0-0.2) K/mcL PT 12.9 H (9.4-12.1) Seconds INR 1.2 APTT 28.6 (26.0-36.0) Seconds Sodium 139 (136-145) mEq/L Potassium 3.9 (3.5-5.1) mEq/L Chloride 107 (98-107) mEq/L Carbon Dioxide 20 L (23-29) mEq/L BUN 25 H (8-23) mg/dL Creatinine 1.70 H (0.60-1.20) mg/dL Est GFR ( Amer) 36 L (> 60) Est GFR (Non-Af Amer) 30 L (> 60) BUN/Creatinine Ratio 15 (6-26) Glucose 108 H (70-105) mg/dL Calculated Osmolality 293 (280-300) Calcium 8.5 L (8.6-10.3) mg/dL Troponin I (< 0.04) ng/mL Urine Color (Yellow) Urine Clarity (Clear) Urine pH (5.0-8.0) pH Units Ur Specific Goff (1.010-1.025) Urine Protein (Neg-Trace) mg/dL Urine Glucose (UA) (Normal) mg/dL Urine Ketones (Negative) mg/dL Urine Blood (Negative) Urine Nitrite (Negative) Urine Bilirubin (Negative) Urine Urobilinogen (Normal) mg/dL Ur Leukocyte Esterase (Negative) Urine Microscopic RBC (0-3) per hpf Urine Microscopic WBC (0-3) per hpf Ur Squamous Epith Cells (None-Few) per lpf Urine Bacteria (None-Few) per hpf 10/22/17 10/23/17 Range/Units 10:28 00:44 WBC (4.3-11.1) K/mcL RBC (3.82-4.97) M/mcL Hgb (11.5-15.4) g/dL Hct (35.3-44.9) % MCV (83.0-100.0) fL MCH (28.0-33.3) pg MCHC (31.6-35.5) g/dL RDW (11.5-14.5) % Plt Count (140-400) K/mcL MPV (9.4-12.4) fL Immature Gran % (0-4) % Seg Neutrophils % % Lymphocytes % % Monocytes % % Eosinophils % % Basophils % % Neutrophils # (1.6-8.9) K/mcL Lymphocytes # (0.6-4.6) K/mcL Monocytes # (0.0-1.3) K/mcL Eosinophils # (0.0-0.6) K/mcL Basophils # (0.0-0.2) K/mcL PT (9.4-12.1) Seconds INR APTT (26.0-36.0) Seconds Sodium (136-145) mEq/L Potassium (3.5-5.1) mEq/L Chloride (98-107) mEq/L Carbon Dioxide (23-29) mEq/L BUN (8-23) mg/dL Creatinine (0.60-1.20) mg/dL Est GFR ( Amer) (> 60) Est GFR (Non-Af Amer) (> 60) BUN/Creatinine Ratio (6-26) Glucose (70-105) mg/dL Calculated Osmolality (280-300) Calcium (8.6-10.3) mg/dL Troponin I < 0.03 (< 0.04) ng/mL Urine Color Yellow (Yellow) Urine Clarity Slightly Cloudy A (Clear) Urine pH 5.0 (5.0-8.0) pH Units Ur Specific Goff 1.015 (1.010-1.025) Urine Protein Trace (Neg-Trace) mg/dL Urine Glucose (UA) Normal (Normal) mg/dL Urine Ketones Negative (Negative) mg/dL Urine Blood Negative (Negative) Urine Nitrite Positive A (Negative) Urine Bilirubin Negative (Negative) Urine Urobilinogen Normal (Normal) mg/dL Ur Leukocyte Esterase Trace H (Negative) Urine Microscopic RBC 0-3 (0-3) per hpf Urine Microscopic WBC 5-15 H (0-3) per hpf Ur Squamous Epith Cells Few (None-Few) per lpf Urine Bacteria Moderate H (None-Few) per hpf
[2017-10-22 22:37] LABS: Basophils # 0.1 K/mcL (0.0-0.2); Basophils % 0.4 %; Eosinophils # 0.1 K/mcL (0.0-0.6); Eosinophils % 0.6 %; Hematocrit 36.5 % (35.3-44.9); Hemoglobin 11.9 g/dL (11.5-15.4); Immature Granulocytes % 0.3 % (0-4); Lymphocytes # 2.3 K/mcL (0.6-4.6); Lymphocytes % 14.2 %; Mean Corpuscular HGB Conc 32.6 g/dL (31.6-35.5); Mean Corpuscular Hemoglobin 29.8 pg (28.0-33.3); Mean Corpuscular Volume 91.3 fL (83.0-100.0); Mean Platelet Volume 10.3 fL (9.4-12.4); Monocytes # 1.1 K/mcL (0.0-1.3); Neutrophils # 12.4 K/mcL (1.6-8.9); Platelet Count 261 K/mcL (140-400); Segmented Neutrophils % 77.5 %
[2017-10-22 22:41] LABS: INR 1.2; Prothrombin Time 12.9 Seconds (9.4-12.1)
[2017-10-22 22:44] LABS: Activated Partial Thrombo Time 28.6 Seconds (26.0-36.0)
[2017-10-22 22:50] LABS: Calcium 8.5 mg/dL (8.6-10.3); Potassium 3.9 mEq/L (3.5-5.1)
[2017-10-23 00:53] LABS: Bilirubin,Urine Negative (Negative); Blood,Urine Negative (Negative); Clarity,Urine Slightly Cloudy (Clear); Color,Urine Yellow (Yellow); Glucose,Urine (UA) Normal (Normal); Ketones,Urine Negative (Negative); Leukocyte Esterase,Urine Trace (Negative); Nitrite,Urine Positive (Negative); Protein,Urine Trace mg/dL (Neg-Trace); Specific Gravity,Urine 1.015 (1.010-1.025); Urobilinogen,Urine Normal (Normal)
[2017-10-23 01:02] LABS: Bacteria,Urine Moderate per hpf (None-Few); RBC,Urine 0-3 per hpf (0-3); Squamous Epithelial Cell,Urine Few per lpf (None-Few)
[2017-10-23] MEDS ORDERED: Acetaminophen 325 MG TABLET PO PRN ×2 (01:49→08:21)
[2017-10-23] MEDS ORDERED: Naloxone 0.4 MG/ML INJ IVP PRN ×2 (01:49→08:21)
[2017-10-23] MEDS ORDERED: Nitroglycerin 0.4 MG TAB.SUBL SL PRN (08:21)
[2017-10-23] MEDS ORDERED: 0.9 % Sodium Chloride 1,000 ML IVC SCH (08:21)
[2017-10-23] MEDS ORDERED: SUMAtriptan succinate 50 MG TABLET PO PRN (08:21)
[2017-10-23] MEDS ORDERED: amLODIPine 5 MG TABLET PO SCH (09:00)
[2017-10-23] MEDS ORDERED: Loratadine 10 MG TABLET PO SCH (09:00)
[2017-10-23] MEDS: Isosorbide MONOnitrate (24 HR) 60 MG TAB.ER.24H PO SCH (09:20)
[2017-10-23] MEDS: Aspirin 325 MG TABLET PO SCH (09:21)
[2017-10-23] MEDS: tiZANidine 4 MG TABLET PO SCH ×3 (09:21→20:23)
[2017-10-23] MEDS: Gabapentin 300 MG CAPSULE PO SCH ×3 (09:21→20:15)
[2017-10-23] MEDS: *HR* Metformin 500 MG TABLET PO SCH ×2 (09:37→17:45)
[2017-10-23] MEDS: Levothyroxine 25 MCG TABLET PO SCH (09:41)
--- NOTE | 2017-10-23 17:25 | Internal Med History&Physical ---
Date of Encounter: 10/23/17 Time of Encounter: 14:40 Assessment and Plan (1) Syncope Current visit: No Status: Acute Etiology not determined. She has been placed on telemetry. Orthostatic vital signs will be checked in a.m. Qualifiers: Syncope type: unspecified Qualified Code(s): R55 - Syncope and collapse (2) Azotemia Current visit: Yes Status: Acute We will continue IV fluids. Recheck labs in a.m. (3) Leukocytosis Current visit: Yes Status: Acute We will recheck labs in a.m. Suspect possible viral gastroenteritis. Qualifiers: Leukocytosis type: unspecified Qualified Code(s): D72.829 - Elevated white blood cell count, unspecified (4) Hypertension Current visit: No Status: Chronic Will hold antihypertensive medication since blood pressure borderline low. Qualifiers: Hypertension type: essential hypertension Qualified Code(s): I10 - Essential (primary) hypertension (5) Neuropathy Current visit: No Status: Chronic Etiology possibly DPN. B12 and TSH levels were normal September 2017. (6) UTI (urinary tract infection) Current visit: Yes Status: Acute She was given Rocephin empirically in emergency room. I will discontinue this to avoid worsening diarrhea and start her on . Urine culture has been ordered. Qualifiers: Urinary tract infection type: site unspecified Hematuria presence: without hematuria Qualified Code(s): N39.0 - Urinary tract infection, site not specified Internal Medicine - H&P: HPI Chief complaint: Syncope and diarrhea Admitted From: Emergency Dept Plans for Post Hospital Care: Home History of present illness: Ms. Palacio is a 67 year old female who came to emergency room stating approximately 1 AM she had a syncopal episode with fall in her bathroom. She states she felt lightheaded but there was no loss of bowel or bladder control. She believes she was unconscious for approximately 1 minute. Upon awakening she felt significant weakness in her arms and legs for approximately 2 minutes. She was able to get off the floor then and use the bathroom. She went back to bed and awakened in the morning with diarrhea and abdominal cramping for a few hours. It seemed to lessen but then returned approximately 5 PM. She went to the bathroom again approximately 7 PM and had a fall without syncope. She again experienced arm and leg weakness. She was brought to emergency room and evaluated and found to have azotemia and leukocytosis with slight left shift. She was admitted to [facility] floor for ongoing care needs. She has had several episodes of syncope and near-syncope in the past few years. She has occasional orthostatic symptoms on arising. Her cardiovascular history is significant for hypertension. She reports having a heart catheter after a non-STEMI July 2017 which showed no abnormality requiring stents or recommendations for surgery. She reports being hospitalized at [facility] September 2017 with uncontrolled hypertension and chest pain. Her medications were adjusted without repeat catheter done. She reports a diagnosis of heart failure but an echocardiogram at [facility] 09/29/2016 showed LVEF of 60% with mild diastolic dysfunction. The E/A ratio was 0.8. Left atrium was reported mildly dilated but no LA size was recorded. She claims she had DVT many years ago. She gets chest pain occasionally on walking from the parking lot into a store. Past Med Surg Social Fam HX - Past Medical History Medical history: arthritis, cancer, CHF, hyperlipidemia, hypertension, liver disease, migraine, myocardial infarction, TIA Psychiatric history: anxiety, depression - Past Surgical History Surgical History: appendectomy, cancer surgery, hysterectomy, orthopedic, other , other - Social History Smoking Status: Never smoker Smokeless Tobacco Status: No Alcohol use: none Drug use: none - Family History Mother Family Member Ethnicity: Non- Living Status: Hx Family Cardiac Disorders: Yes (hypertension, hyperlipidemia) Hx Family Cancer: Yes (mother, father had colon cancer) Hx Family Neurologic Disorders: Yes (STROKES) Internal Medicine - H&P: Meds Gabapentin [Neurontin] 300 mg PO TID 05/14/15 [History] Tamoxifen [Nolvadex] 20 mg PO DAILY 05/14/15 [History] Venlafaxine [Effexor] 225 mg PO DAILY 05/14/15 [History] Zolpidem [Ambien] 10 mg PO HS 05/14/15 [History] Tizanidine [Zanaflex] 4 mg PO TID 08/25/15 [History] SUMAtriptan Succinate [Imitrex] 100 mg PO DAILY PRN 10/23/15 [History] Aspirin 325 mg PO DAILY 06/15/16 [History] Atorvastatin [Lipitor] 20 mg PO HS 06/15/16 [History] DiphenhydraMINE [Benadryl] 25 mg PO Q4HR 06/15/16 [History] Ferrous Sulfate 65 mg PO QAM 06/15/16 [History] Levothyroxine [Synthroid] 25 mcg PO 0630 06/15/16 [History] Lisinopril [Zestril] 10 mg PO DAILY 06/15/16 [History] Nitroglycerin [Nitrostat] 0.4 mg SL PRN PRN 06/15/16 [History] Prochlorperazine Maleate [Compazine] 10 mg PO Q6HR 06/15/16 [History] amLODIPine [Norvasc] 5 mg PO DAILY 06/15/16 [History] metFORMIN [Glucophage] 500 mg PO BIDWM 06/15/16 [History] Loratadine [Claritin] 10 mg PO QAM 09/16/16 [History] Isosorbide MONOnitrate (24 HR) [Imdur] 60 mg PO DAILY #30 tab.er.24h 01/10/17 [ Rx] Docusate [Colace] 200 mg PO BID 05/03/17 [History] Coreg 10/22/17 [History] 3 Allergy/AdvReac Type Severity Reaction Status Date / Time acetaminophen [From Tylenol] Allergy See Verified 05/02/17 19:30 Comments latex Allergy See Verified 05/02/17 19:30 Comments All Systems PM: A 10-system review of systems was performed and is negative for pertinent findings except as documented above in the HPI. Review of systems: Review of systems from her April 2017 [facility] hospitalization were reviewed and revised as below. Gen.: Her weight has been stable since the December 2016 [facility] hospitalization at approximately 152 pounds. Cardiovascular: As per history of present illness Respiratory: She is a lifelong nonsmoker and has no known chronic lung disease. She states she was scheduled for evaluation for obstructive sleep apnea in June 2015 but did not get to the appointment GI: She has a diagnosis of CORNELL. She denies other disorders of her liver gallbladder or exocrine pancreas : She had hematuria in the past. She denies known chronic kidney disease or kidney stones. She has had transient azotemia in the past which has responded to IV fluid administration. Neurologic: She claims she had a mini stroke December 2014 and another one in 2016 but symptoms completely resolved. She has had no other large distribution strokes or seizures. She claims she has been diagnosed with neuropathy but states no workup was done for etiology. Endocrine: She states she was diagnosed with DM 2 in mid 2014. She has hypothyroidism and hyperlipidemia. Hematology/oncology: She had anemia at the October 2015 [facility] hospitalization which has now resolved. She states she had left mastectomy done July 2010 and has been on tamoxifen since then. She is presumed cancer free. She states she had an oncology visit May 2017. Psychiatric: She has anxiety and depression but denies other mental health issues Musk skeletal: She has DJD and osteopenia - Constitutional Vitals: Temp Pulse Resp BP Pulse Ox 98.6 F 70 16 85/45 96 10/23/17 15:38 10/23/17 15:38 10/23/17 15:38 10/23/17 15:38 10/23/17 15:38 Exam: Gen.: She is a well-developed well-nourished female resting comfortably in bed who appears in no acute distress HEENT: Head is atraumatic and normocephalic. Eyes: EOMI. There is no scleral icterus. Mouth: Mucosa is moist. Neck: Supple and nontender. There is no thyromegaly and not noted. Heart: Regular without murmurs gallops or ectopics Lungs: No wheezes or crackles are heard. Abdomen: Soft and nontender. No masses or guarding are noted. Extremities: There is no cyanosis edema or clubbing noted. Dorsalis pedis and posttibial pulses 1-2 over 2 bilaterally. Neurologic: Mental status: She is talkative and a good historian. Cranial nerves: Smile is symmetric. Forehead wrinkles bilaterally. Tongue protrudes midline. EOMI. Motor: There is no pronator drift. Cerebellar: finger to nose is intact bilaterally. Skin: Warm and dry Internal Med - H&P Results - Labs CBC & Chem 7: 10/22/17 10:28 10/22/17 10:28
[2017-10-23] MEDS: 0.45 % Sodium Chloride w/KCl 20 MEQ/1,000 ML MLS IVC SCH (17:39)
[2017-10-23] MEDS: Lactobacillus 1 EACH CAP.SPRINK PO SCH (20:15)
[2017-10-23] MEDS: Sulfamethoxazole/Trimeth DS 1 EACH TABLET PO SCH (20:15)
[2017-10-24] MEDS ORDERED: cefTRIAXone 1,000 MG in Water for inj. (sterile) 20 ML 10 ML IVPB SCH (01:00)
[2017-10-24 05:14] LABS: Basophils % 0.6 %; Eosinophils # 0.1 K/mcL (0.0-0.6); Hematocrit 30.7 % (35.3-44.9); Immature Granulocytes % 1.4 % (0-4); Lymphocytes % 27.9 %; Mean Corpuscular HGB Conc 32.6 g/dL (31.6-35.5); Mean Corpuscular Hemoglobin 29.9 pg (28.0-33.3); Mean Corpuscular Volume 91.9 fL (83.0-100.0); Mean Platelet Volume 10.8 fL (9.4-12.4); Monocytes # 0.5 K/mcL (0.0-1.3); Monocytes % 7.4 %; Neutrophils # 4.3 K/mcL (1.6-8.9); Platelet Count 184 K/mcL (140-400); Red Blood Count 3.34 M/mcL (3.82-4.97); Red Cell Distribution Width 13.2 % (11.5-14.5); Segmented Neutrophils % 60.7 %
[2017-10-24 05:37] LABS: BUN/Creatinine Ratio 15 (6-26); Blood Urea Nitrogen 13 mg/dL (8-23); Calcium 7.4 mg/dL (8.6-10.3); Carbon Dioxide 20 mEq/L (23-29); Chloride 110 mEq/L (98-107); Glucose 98 mg/dL (70-105); Magnesium 1.4 mg/dL (1.6-2.6); Osmolality,Calculated 286 (280-300); Potassium 3.5 mEq/L (3.5-5.1); Sodium 138 mEq/L (136-145); eGFR For Non-African Americans > 60 (> 60)
[2017-10-24] MEDS: Levothyroxine 25 MCG TABLET PO SCH (06:32)
[2017-10-24] MEDS: 0.45 % Sodium Chloride w/KCl 20 MEQ/1,000 ML MLS IVC SCH ×3 (06:34→22:06)
[2017-10-24] MEDS: Lactobacillus 1 EACH CAP.SPRINK PO SCH ×2 (08:06→22:08)
[2017-10-24] MEDS: Sulfamethoxazole/Trimeth DS 1 EACH TABLET PO SCH ×2 (08:06→22:07)
[2017-10-24] MEDS: Gabapentin 300 MG CAPSULE PO SCH ×3 (08:07→22:08)
[2017-10-24] MEDS: Isosorbide MONOnitrate (24 HR) 60 MG TAB.ER.24H PO SCH (08:07)
[2017-10-24] MEDS: Aspirin 325 MG TABLET PO SCH (08:07)
[2017-10-24] MEDS: tiZANidine 4 MG TABLET PO SCH ×2 (08:08→16:21)
--- NOTE | 2017-10-24 10:33 | Internal Med Progress Note ---
Date of Encounter: 10/24/17 Time of Encounter: 10:25 - Assessment and plan (1) Syncope Current Visit: No Status: Acute Assessment and plan: October 24. Etiology not determined. She has had no further syncope or near syncope. Continue present management. Qualifiers: Syncope type: unspecified Qualified Code(s): R55 - Syncope and collapse (2) Azotemia Current Visit: Yes Status: Acute Assessment and plan: October 24. Resolved. Will decrease IV fluid rate. Anticipate discharge tomorrow. (3) Leukocytosis Current Visit: Yes Status: Acute Assessment and plan: October 24. Resolved. Qualifiers: Leukocytosis type: unspecified Qualified Code(s): D72.829 - Elevated white blood cell count, unspecified (4) Hypertension Current Visit: No Status: Chronic Assessment and plan: October 24. Blood pressure improved. Remain off amlodipine but restart Coreg at low dose.. Qualifiers: Hypertension type: essential hypertension Qualified Code(s): I10 - Essential (primary) hypertension (5) Neuropathy Current Visit: No Status: Chronic Assessment and plan: October 24. Possible DPN. (6) UTI (urinary tract infection) Current Visit: Yes Status: Acute Assessment and plan: October 24. Continue Septra empirically. Qualifiers: Urinary tract infection type: site unspecified Hematuria presence: without hematuria Qualified Code(s): N39.0 - Urinary tract infection, site not specified (7) Anemia Current Visit: Yes Status: Acute Assessment and plan: October 24. We will order anemia workup and hold aspirin. Qualifiers: Anemia type: unspecified type Qualified Code(s): D64.9 - Anemia, unspecified (8) Hypomagnesemia Current Visit: Yes Status: Acute Assessment and plan: October 24. We will start magnesium oxide. - Subjective Interval history: October 24. She has no new complaints and feels better. She states she feels lightheaded on standing. - Constitutional Vitals: Temp Pulse Resp BP Pulse Ox 97.6 F 81 18 161/56 98 10/24/17 10:28 10/24/17 10:28 10/24/17 10:28 10/24/17 10:28 10/24/17 10:28 Exam: She is resting comfortably in bed appears in no acute distress. Her affect is bright and cheerful. I reviewed her medications and lab results. Internal Medicine: Result - Labs CBC & Chem 7: 10/24/17 04:40 10/24/17 04:40 Labs: Short CBC 10/24/17 Range/Units 04:40 WBC 7.1 D (4.3-11.1) K/mcL Hgb 10.0 L D (11.5-15.4) g/dL Hct 30.7 L (35.3-44.9) % Plt Count 184 (140-400) K/mcL Neutrophils # 4.3 (1.6-8.9) K/mcL BMP 10/24/17 04:40 Sodium 138 Potassium 3.5 Chloride 110 H Carbon Dioxide 20 L BUN 13 Creatinine 0.89 Glucose 98 Calcium 7.4 L - ABG Interpretation ABG results: PT/INR, D-dimer PT 12.9 Seconds (9.4-12.1) H 10/22/17 10:28 Consult Discharge Plan - Plan Referrals: Edie Andrea MD [Primary Care Provider] - 1 week
[2017-10-24] MEDS: Magnesium Oxide 400 MG TABLET PO SCH ×2 (12:52→22:08)
[2017-10-24] MEDS: *HR* Metformin 500 MG TABLET PO SCH (19:33)
[2017-10-24 20:05] LABS: % Iron Saturation 30 % (15-50); Ferritin 153 ng/ml (10-120); Iron 70 mcg/dL (50-170); Transferrin 165 mg/dL (203-362)
[2017-10-24 23:03] LABS: Folate 22.3 ng/mL (3.0-16.0)
[2017-10-25] MEDS: tiZANidine 4 MG TABLET PO SCH ×2 (03:06→08:31)
[2017-10-25] MEDS: Levothyroxine 25 MCG TABLET PO SCH (05:31)
[2017-10-25] MEDS ORDERED: *HR* Enoxaparin 40 MG/0.4 ML SYRINGE SQ SCH (06:00)
[2017-10-25 06:12] LABS: Basophils % 0.8 %; Eosinophils # 0.1 K/mcL (0.0-0.6); Eosinophils % 1.9 %; Hematocrit 32.9 % (35.3-44.9); Hemoglobin 10.9 g/dL (11.5-15.4); Immature Granulocytes % 0.4 % (0-4); Lymphocytes # 1.5 K/mcL (0.6-4.6); Lymphocytes % 32.3 %; Mean Corpuscular HGB Conc 33.1 g/dL (31.6-35.5); Mean Corpuscular Hemoglobin 29.9 pg (28.0-33.3); Mean Corpuscular Volume 90.4 fL (83.0-100.0); Mean Platelet Volume 10.7 fL (9.4-12.4); Monocytes # 0.4 K/mcL (0.0-1.3); Monocytes % 8.4 %; Neutrophils # 2.7 K/mcL (1.6-8.9); Platelet Count 185 K/mcL (140-400); Red Blood Count 3.64 M/mcL (3.82-4.97); Segmented Neutrophils % 56.2 %
[2017-10-25 06:39] LABS: Alanine Aminotransferase 18 Units/L (7-52); Albumin/Globulin Ratio 1.2 (1.1-2.2); Alkaline Phosphatase 73 Units/L (34-104); Aspartate Amino Transferase 22 Units/L (13-39); BUN/Creatinine Ratio 11 (6-26); Bilirubin,Total 0.2 mg/dL (0.3-1.0); Blood Urea Nitrogen 9 mg/dL (8-23); Calcium 7.9 mg/dL (8.6-10.3); Carbon Dioxide 22 mEq/L (23-29); Chloride 110 mEq/L (98-107); Globulin 2.5 g/dL (2.4-3.5); Glucose 78 mg/dL (70-105); Osmolality,Calculated 288 (280-300); Potassium 3.7 mEq/L (3.5-5.1); Sodium 140 mEq/L (136-145); Total Protein 5.5 g/dL (6.4-8.9); eGFR For Non-African Americans > 60 (> 60)
[2017-10-25 07:02] VITALS: BP 152/75
--- NOTE | 2017-10-25 07:32 | Electrocardiograph Report ---
[address] [address] Test Date: 2017-10-22 Pat Name: Jazmine Palacio Department: [id number] Room: [facility] Gender: F Director Channel: [id number] : 1950 Requested By: Vishnu Barakat Order Number: [id number] Reading MD: Kalyan King MD Measurements Intervals [place] Rate: 64 P: 21 NM: 149 QRS: -9 QRSD: 97 T: 43 QT: 387 QTc: 396 Interpretive Statements SINUS RHYTHM Electronically Signed On 10-25-2017 7:30:19 EST by Kalyan King MD
[2017-10-25] MEDS: Gabapentin 300 MG CAPSULE PO SCH (08:29)
[2017-10-25] MEDS: *HR* Metformin 500 MG TABLET PO SCH (08:30)
[2017-10-25] MEDS: Magnesium Oxide 400 MG TABLET PO SCH (08:30)
[2017-10-25] MEDS: Sulfamethoxazole/Trimeth DS 1 EACH TABLET PO SCH (08:30)
[2017-10-25] MEDS: Isosorbide MONOnitrate (24 HR) 60 MG TAB.ER.24H PO SCH (08:30)
[2017-10-25] MEDS: Lactobacillus 1 EACH CAP.SPRINK PO SCH (08:30)
--- NOTE | 2017-10-25 10:33 | Discharge Summary ---
Date of Encounter: 10/25/17 Time of Encounter: 10:25 - Discharge Diagnosis (1) Syncope Priority: Primary Status: Acute Qualifiers: Syncope type: unspecified Qualified Code(s): R55 - Syncope and collapse (2) Azotemia Priority: Secondary Status: Resolved (3) Leukocytosis Priority: Secondary Status: Resolved Qualifiers: Leukocytosis type: unspecified Qualified Code(s): D72.829 - Elevated white blood cell count, unspecified (4) Hypertension Priority: Secondary Status: Chronic Qualifiers: Hypertension type: essential hypertension Qualified Code(s): I10 - Essential (primary) hypertension (5) Neuropathy Priority: Secondary Status: Chronic (6) UTI (urinary tract infection) Priority: Secondary Status: Acute Qualifiers: Urinary tract infection type: site unspecified Hematuria presence: without hematuria Qualified Code(s): N39.0 - Urinary tract infection, site not specified (7) Anemia Priority: Secondary Status: Acute Qualifiers: Anemia type: unspecified type Qualified Code(s): D64.9 - Anemia, unspecified (8) Hypomagnesemia Priority: Secondary Status: Acute - Discharge Medications Prescriptions: Magnesium Oxide [Mag-Ox] 400 mg PO DAILY #7 tablet Home Medications: Gabapentin [Neurontin] 300 mg PO TID 05/14/15 [History] Tamoxifen [Nolvadex] 20 mg PO DAILY 05/14/15 [History] Venlafaxine [Effexor] 225 mg PO DAILY 05/14/15 [History] Zolpidem [Ambien] 10 mg PO HS 05/14/15 [History] Tizanidine [Zanaflex] 4 mg PO TID 08/25/15 [History] SUMAtriptan Succinate [Imitrex] 100 mg PO DAILY PRN 10/23/15 [History] Aspirin 325 mg PO DAILY 06/15/16 [History] Atorvastatin [Lipitor] 20 mg PO HS 06/15/16 [History] DiphenhydraMINE [Benadryl] 25 mg PO Q4HR 06/15/16 [History] Ferrous Sulfate 65 mg PO QAM 06/15/16 [History] Levothyroxine [Synthroid] 25 mcg PO 0630 06/15/16 [History] Lisinopril [Zestril] 10 mg PO DAILY 06/15/16 [History] Nitroglycerin [Nitrostat] 0.4 mg SL PRN PRN 06/15/16 [History] Prochlorperazine Maleate [Compazine] 10 mg PO Q6HR 06/15/16 [History] metFORMIN [Glucophage] 500 mg PO BIDWM 06/15/16 [History] Isosorbide MONOnitrate (24 HR) [Imdur] 60 mg PO DAILY #30 tab.er.24h 01/10/17 [ Rx] Docusate [Colace] 200 mg PO BID 05/03/17 [History] Coreg 10/22/17 [History] Loratadine [Claritin] 10 mg PO QAM PRN #0 10/25/17 [Rx] Magnesium Oxide [Mag-Ox] 400 mg PO DAILY #7 tablet 10/25/17 [Rx] Allergies/Adverse Reactions: 3 Allergy/AdvReac Type Severity Reaction Status Date / Time acetaminophen [From Tylenol] Allergy See Verified 05/02/17 19:30 Comments latex Allergy See Verified 05/02/17 19:30 Comments Date of admission: 10/24/17 13:46 Primary care physician: Edie Andrea - Patient Status Disposition: Home, Self-Care Condition: Fair Functional capacity at discharge: independent ambulation Overall status at discharge: patient is progressing back to baseline - Discharge Instructions Follow Up With: Edie Andrea MD [Primary Care Provider] - 1 week - Diet and Activity Activity: resume usual activities as tolerated Diet: advance to your usual diet Hospital course: Ms. Palacio is a 67 year old female who came to emergency room stating approximately 1 AM she had a syncopal episode with fall in her bathroom. She states she felt lightheaded but there was no loss of bowel or bladder control. She believes she was unconscious for approximately 1 minute. Upon awakening she felt significant weakness in her arms and legs for approximately 2 minutes. She was able to get off the floor then and use the bathroom. She went back to bed and awakened in the morning with diarrhea and abdominal cramping for a few hours. It seemed to lessen but then returned approximately 5 PM. She went to the bathroom again approximately 7 PM and had a fall without syncope. She again experienced arm and leg weakness. She was brought to emergency room and evaluated and found to have azotemia and leukocytosis with slight left shift. She was admitted to [facility] floor for ongoing care needs. Initial orders were written by the emergency room physician. I saw her on October 23 and performed a history and physical. She was placed on telemetry. She had no further syncopal or near syncopal episodes. The etiology of her syncope was not determined with certainty. I suspect it was related in part to hypotension. Amlodipine was discontinued and Coreg was held initially. BP returned to satisfactory range. She will remain off amlodipine at discharge but resume Coreg. Her blood pressure can be monitored by her PCP. Leukocytosis resolved by 10/24/2017 and no further workup was done. She was given Rocephin empirically in emergency room for possible UTI. She was changed to oral Septra to avoid worsening diarrhea. She remained afebrile and asymptomatic. She will not continue antibiotics at home. Magnesium level returned low at 1.4. She was given magnesium oxide during hospitalization. She will continue with magnesium oxide 400 mg daily for 7 days after discharge. Her PCP can monitor this. On October 25 I felt she was stable for discharge home. She will follow with her PCP Dr. Andrea within 1 week. - Time Spent with Patient Total time spent providing and/or coordinating discharge services: - Constitutional Vitals: Temp Pulse Resp BP Pulse Ox 99.2 F 83 12 152/75 93 10/25/17 07:01 10/25/17 07:01 10/25/17 07:01 10/25/17 07:01 10/25/17 07:01
== END 2017-10-25 12:36 | disposition home or self-care (01) | DRG 312 ==
LOC: INPPIK 21:51 → EMEROOPIK 21:51 → INPPIK 10-23 03:45
PROVIDERS: ADMIT Internal Medicine; ATTEND Internal Medicine

== ENCOUNTER 2018-06-03 09:39 | Inpatient (IN) ==
[2018-06-03] MEDS ORDERED: tiZANidine 4 MG TABLET PO PRN (18:35)
[2018-06-03] MEDS ORDERED: SUMAtriptan succinate 50 MG TABLET PO PRN (18:35)
[2018-06-03] MEDS ORDERED: Nitroglycerin 0.4 MG TAB.SUBL SL PRN (18:35)
[2018-06-03] MEDS ORDERED: Loratadine 10 MG TABLET PO PRN (18:35)
[2018-06-03] MEDS ORDERED: Nystatin POWDER 30 GM BOTTLE TP PRN (18:35)
[2018-06-03] MEDS: Gabapentin 400 MG CAPSULE PO SCH (22:04)
[2018-06-03] MEDS: Aspirin Enteric Coated 325 MG Tablet PO SCH (22:04)
[2018-06-03] MEDS: rOPINIRole 0.25 MG TABLET PO SCH (22:04)
[2018-06-03] MEDS: *HR* OxyCODONE Immed Rel 5 MG TABLET PO PRN (22:19)
[2018-06-04] MEDS: Levothyroxine 25 MCG TABLET PO SCH (06:00)
[2018-06-04] MEDS: *HR* OxyCODONE Immed Rel 5 MG TABLET PO PRN ×2 (06:14→17:23)
[2018-06-04] MEDS ORDERED: Metoprolol XL (24 HR) Succ 25 MG TAB.ER.24H PO SCH (09:00)
[2018-06-04] MEDS: amLODIPine 5 MG TABLET PO SCH (09:48)
[2018-06-04] MEDS: *HR* Metformin 500 MG TABLET PO SCH ×2 (09:49→17:20)
[2018-06-04] MEDS: Aspirin Enteric Coated 325 MG Tablet PO SCH (09:51)
[2018-06-04] MEDS: Gabapentin 400 MG CAPSULE PO SCH ×2 (09:51→20:34)
[2018-06-04] MEDS: FISH OIL 1000 MG PO SCH (12:21)
[2018-06-04] MEDS: VITAMIN E 100 UNIT PO SCH (12:22)
--- NOTE | 2018-06-04 18:09 | Internal Med History&Physical ---
Date of Encounter: 06/04/18 Time of Encounter: 17:45 Assessment and Plan (1) Status post total knee replacement, right Current visit: No Status: Acute PT and OT evaluations have been ordered. She will receive Lovenox for DVT prophylaxis. Further workup and treatment will be done as needed. (2) Hypertension Current visit: No Status: Chronic Continue amlodipine, Coreg, and lisinopril. Qualifiers: Hypertension type: essential hypertension Qualified Code(s): I10 - Essential (primary) hypertension (3) Neuropathy Current visit: No Status: Chronic Continue Neurontin. (4) Hypomagnesemia Current visit: No Status: Acute Magnesium level was 1.4 on 10/24/2017. Recheck in a.m. (5) DMII (diabetes mellitus, type 2) Current visit: No Status: Chronic Hemoglobin A1c was 5.9% on 04/20/2018. Continue Glucophage and do Accu-Cheks with SSI. Qualifiers: Diabetes mellitus intermediate teacher insulin use: unspecified intermediate teacher insulin use status Diabetes mellitus complication status: with unspecified complications Qualified Code(s): E11.8 - Type 2 diabetes mellitus with unspecified complications (6) Acute blood loss anemia Current visit: No Status: Acute Will change from aspirin to Lovenox for DVT prophylaxis and monitor CBC. Internal Medicine - H&P: HPI Chief complaint: Knee replacement Admitted From: Hospital to Hospital Transfer Plans for Post Hospital Care: Home History of present illness: Ms. Palacio is a 68 year old female who underwent elective right total knee replacement at [facility] on 05/30/2018. Her postop course was unremarkable except for anemia requiring 2 units packed red blood cells. Following stabilization she was discharged to [facility] swing bed for rehabilitation therapy prior to returning to independent living at home. She reports previous bunion surgery. She has DJD and osteopenia. She denies other bone joint or muscle disorders. Past Med Surg Social Fam HX - Past Medical History Medical history: asthma, cancer, CHF, CVA, hyperlipidemia, myocardial infarction Additional medical history: CVA 15, CT 17, stomach ulcer, home o2 prn, anemia, blood clots, Psychiatric history: anxiety, depression - Past Surgical History Surgical History: appendectomy, cancer surgery, other Additional surgical history: left mastectomy, tubal, RCTR, - Social History Smoking Status: Never smoker Smokeless Tobacco Status: No Alcohol use: none Drug use: none - Family History Mother Family Member Ethnicity: Non- Living Status: Hx Family Cardiac Disorders: Yes (hypertension, hyperlipidemia) Hx Family Cancer: Yes (mother, father had colon cancer) Hx Family Neurologic Disorders: Yes (STROKES) Internal Medicine - H&P: Meds SUMAtriptan Succinate [Imitrex] 100 mg PO DAILY PRN 10/23/15 [History] Atorvastatin [Lipitor] 20 mg PO HS 06/15/16 [History] Ferrous Sulfate 65 mg PO QAM 06/15/16 [History] Levothyroxine [Synthroid] 25 mcg PO 0630 06/15/16 [History] Nitroglycerin [Nitrostat] 0.4 mg SL Q5MIN PRN 06/15/16 [History] metFORMIN [Glucophage] 500 mg PO BIDWM 06/15/16 [History] Loratadine [Claritin] 10 mg PO QAM PRN #0 10/25/17 [Rx] Aspirin Enteric Coated [Aspirin EC] 325 mg PO BID #20 tablet. 05/29/18 [Rx] OxyCODONE Immed Rel [Roxicodone 5 MG] 5 mg PO Q6HR PRN 7 Days #28 tablet [Rx] Amitriptyline [Elavil] 25 mg PO DAILY 05/30/18 [History] Aspirin 325 mg PO DAILY 05/30/18 [History] Carvedilol [Coreg] 25 mg PO BID 05/30/18 [History] Donepezil [Aricept] 10 mg PO HS 05/30/18 [History] Ferrous Sulfate [Iron] 325 mg PO DAILY 05/30/18 [History] Gabapentin [Neurontin] 400 mg PO BID 05/30/18 [History] Lisinopril 2.5 mg PO BID 05/30/18 [History] Metoprolol XL (24 HR) Succ [Toprol Xl] 25 mg PO DAILY 05/30/18 [History] Nystatin 1 applic TP BID PRN 05/30/18 [History] [place]-3/Dha/Epa/Fish Oil [Fish Oil Conc 1,000 mg Softgel] 1,000 mg PO DAILY [History] Pantoprazole Sodium 40 mg PO DAILY 05/30/18 [History] Tamoxifen Citrate 20 mg PO DAILY 09/17/18 [History] Tizanidine HCl 4 mg PO Q8H PRN 05/30/18 [History] Tramadol HCl [Ultram] 50 - 100 mg PO Q6H PRN 05/30/18 [History] Venlafaxine [Effexor] 75 mg PO BID 05/30/18 [History] Vitamin E 100 unit PO DAILY 05/30/18 [History] Zolpidem Tartrate 5 mg PO HS PRN 05/30/18 [History] amLODIPine [Norvasc] 7.5 mg PO DAILY 05/30/18 [History] rOPINIRole [Requip] 0.5 mg PO HS 05/30/18 [History] Lidocaine Patch [Lidoderm 5% patch] 1 each TP DAILY adh..patch 06/03/18 [Rx] 3 Allergy/AdvReac Type Severity Reaction Status Date / Time acetaminophen [From Tylenol] Allergy See Verified 05/30/18 10:53 Comments latex Allergy See Verified 05/30/18 10:53 Comments All Systems PM: A 10-system review of systems was performed and is negative for pertinent findings except as documented above in the HPI. Review of systems: Review of systems from her October 2017 [facility] hospitalization were reviewed and revised as below. Gen.: Her weight has been stable since the December 2016 [facility] hospitalization at approximately 76 kg Cardiovascular: She has history of hypertension. She reports having a heart catheter after a non-STEMI July 2017 which showed no abnormality requiring stents or recommendations for surgery. She reports being hospitalized at [facility] September 2017 with uncontrolled hypertension and chest pain. Her medications were adjusted without repeat catheter done. She reports a diagnosis of heart failure but an echocardiogram at [facility] 07/06/2017 showed LVEF of 55-60%. There was reported mild diastolic dysfunction. E/A ratio was 0.9. The interventricular septum and posterior wall thickness measurements were 1.18 and 0.81 cm respectively. There was mild to moderate aortic regurgitation, mild mitral regurgitation, and mild to moderate tricuspid regurgitation. She claims she had DVT many years ago. She denies pulmonary embolus. She gets chest pain occasionally on walking from the parking lot into a store. Respiratory: She is a lifelong nonsmoker and has no known chronic lung disease. She states she was scheduled for evaluation for obstructive sleep apnea in June 2015 but did not get to the appointment and has not rescheduled. GI: She has a diagnosis of CORNELL. She denies other disorders of her liver gallbladder or exocrine pancreas : She had hematuria in the past. She denies known chronic kidney disease or kidney stones. She has had transient azotemia in the past which has responded to IV fluid administration. Neurologic: She claims she had a mini stroke December 2014 and another one in 2016 but symptoms completely resolved. She has had no other large distribution strokes or seizures. She claims she has been diagnosed with neuropathy probably secondary to DM 2 Endocrine: She states she was diagnosed with DM 2 in mid 2014. She has hypothyroidism and hyperlipidemia. Hematology/oncology: She states she had left mastectomy done July 2010 and has been on tamoxifen since then. She is presumed cancer free. She states her last oncology visit was May 2017. She had anemia requiring transfusion as per history of present illness during her recent [facility] stay for TKR. Psychiatric: She has anxiety and depression but denies other mental health issues Musk skeletal: She has DJD and osteopenia - Constitutional Vitals: Temp Pulse Resp BP Pulse Ox 98.1 F 65 18 188/81 98 06/04/18 09:00 06/04/18 09:00 06/03/18 18:12 06/04/18 09:00 06/04/18 09:00 Exam: General.: She is a well developed well-nourished female resting comfortably in bed who appears in no acute distress at present time HEENT: Head is atraumatic and normocephalic. Eyes: EOMI. There is no scleral icterus. Mouth: Mucosa is moist. Neck: Supple and nontender. There is no thyromegaly or adenopathy noted. Heart: Regular without murmurs gallops or ectopics Lungs: No wheezes or crackles are heard. Abdomen: Soft and nontender. No masses or guarding are noted. Extremities: The right knee has a surgical dressing over the anterior knee. The incision appears clean and dry. Lidoderm patches are on either side of the dressing. There is trace edema of the dorsum of the right foot. The left foot shows no significant edema. Neurologic: Mental status: She is talkative and seems to be a reliable historian. Cranial nerves: Smile is symmetric. Forehead wrinkles bilaterally. Tongue protrudes midline. EOMI. Motor: There is no pronator drift. Cerebellar: Finger to nose is intact bilaterally. Skin: Warm and dry.
[2018-06-04] MEDS: Acetaminophen 325 MG TABLET PO SCH (20:33)
[2018-06-04] MEDS: rOPINIRole 0.25 MG TABLET PO SCH (20:34)
[2018-06-05] MEDS: Acetaminophen 325 MG TABLET PO SCH ×3 (05:14→17:22)
[2018-06-05] MEDS: Levothyroxine 25 MCG TABLET PO SCH (06:23)
[2018-06-05] MEDS: *HR* Enoxaparin 40 MG/0.4 ML SYRINGE SQ SCH (06:23)
[2018-06-05 06:38] LABS: Basophils % 0.5 %; Eosinophils # 0.1 K/mcL (0.0-0.6); Hemoglobin 10.2 g/dL (11.5-15.4); Immature Granulocytes % 1.3 % (0-4); Lymphocytes # 1.5 K/mcL (0.6-4.6); Lymphocytes % 26.9 %; Mean Corpuscular HGB Conc 32.9 g/dL (31.6-35.5); Mean Corpuscular Hemoglobin 30.2 pg (28.0-33.3); Mean Corpuscular Volume 91.7 fL (83.0-100.0); Mean Platelet Volume 10.2 fL (9.4-12.4); Monocytes # 0.7 K/mcL (0.0-1.3); Monocytes % 13.4 %; Neutrophils # 3.1 K/mcL (1.6-8.9); Platelet Count 204 K/mcL (140-400); Red Blood Count 3.38 M/mcL (3.82-4.97); Red Cell Distribution Width 14.4 % (11.5-14.5); Segmented Neutrophils % 55.9 %
[2018-06-05] MEDS: amLODIPine 5 MG TABLET PO SCH (08:10)
[2018-06-05] MEDS: Gabapentin 400 MG CAPSULE PO SCH ×2 (08:10→21:40)
[2018-06-05] MEDS: *HR* Metformin 500 MG TABLET PO SCH ×2 (08:10→17:22)
[2018-06-05] MEDS: FISH OIL 1000 MG PO SCH (08:33)
[2018-06-05] MEDS: VITAMIN E 100 UNIT PO SCH (08:33)
--- NOTE | 2018-06-05 12:18 | Internal Med Progress Note ---
Date of Encounter: 06/05/18 Time of Encounter: 12:10 - Assessment and plan (1) Status post total knee replacement, right Current Visit: No Status: Acute Assessment and plan: June 05. Continue PT and OT intervention with Lovenox. (2) Hypertension Current Visit: No Status: Chronic Assessment and plan: June 05. Continue amlodipine, Coreg, and lisinopril Qualifiers: Hypertension type: essential hypertension Qualified Code(s): I10 - Essential (primary) hypertension (3) Neuropathy Current Visit: No Status: Chronic Assessment and plan: June 05. Continue Neurontin. (4) Hypomagnesemia Current Visit: No Status: Acute Assessment and plan: June 05. Resolved. Magnesium level 1.7. (5) DMII (diabetes mellitus, type 2) Current Visit: No Status: Chronic Assessment and plan: June 05. Hemoglobin A1c was 5.9% on 04/20/2018. Continue Glucophage and Accu-Cheks with SSI. 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 Hemoglobin improved to 10.2. Continue to monitor. - Subjective Interval history: June 05. She has no new complaints. - Constitutional Vitals: Temp Pulse Resp BP Pulse Ox 98.6 F 69 16 148/64 94 06/05/18 07:18 06/05/18 07:18 06/05/18 07:18 06/05/18 07:18 06/05/18 07:18 Exam: She is resting comfortably in bed and appears in no acute distress. Her affect is bright and cheerful. I reviewed her medications and lab results. Internal Medicine: Result - Labs CBC & Chem 7: 06/05/18 05:55 Labs: Short CBC 06/05/18 Range/Units 05:55 WBC 5.5 (4.3-11.1) K/mcL Hgb 10.2 L (11.5-15.4) g/dL Hct 31.0 L (35.3-44.9) % Plt Count 204 (140-400) K/mcL Neutrophils # 3.1 (1.6-8.9) K/mcL Consult Discharge Plan - Plan Referrals: Edie Andrea MD [Primary Care Provider] - 1 week
[2018-06-05] MEDS: *HR* OxyCODONE Immed Rel 5 MG TABLET PO PRN (13:41)
[2018-06-05] MEDS: rOPINIRole 0.25 MG TABLET PO SCH (21:42)
[2018-06-06] MEDS: Acetaminophen 325 MG TABLET PO SCH ×3 (02:46→16:50)
[2018-06-06] MEDS: Levothyroxine 25 MCG TABLET PO SCH (06:21)
[2018-06-06] MEDS: *HR* Enoxaparin 40 MG/0.4 ML SYRINGE SQ SCH (06:21)
[2018-06-06] MEDS: Gabapentin 400 MG CAPSULE PO SCH ×2 (07:43→21:27)
[2018-06-06] MEDS: *HR* Metformin 500 MG TABLET PO SCH ×2 (07:43→16:48)
[2018-06-06] MEDS: amLODIPine 5 MG TABLET PO SCH (07:44)
[2018-06-06] MEDS: *HR* OxyCODONE Immed Rel 5 MG TABLET PO PRN ×2 (07:54→16:48)
[2018-06-06] MEDS: FISH OIL 1000 MG PO SCH (07:55)
[2018-06-06] MEDS: VITAMIN E 100 UNIT PO SCH (07:55)
[2018-06-06] MEDS: traMADol 50 MG TABLET PO PRN (11:00)
[2018-06-06] MEDS: rOPINIRole 0.25 MG TABLET PO SCH (21:27)
[2018-06-07] MEDS: Acetaminophen 325 MG TABLET PO SCH ×3 (05:30→17:16)
[2018-06-07] MEDS: *HR* Enoxaparin 40 MG/0.4 ML SYRINGE SQ SCH (06:28)
[2018-06-07] MEDS: Levothyroxine 25 MCG TABLET PO SCH (06:28)
[2018-06-07] MEDS: *HR* Metformin 500 MG TABLET PO SCH ×2 (07:39→16:30)
[2018-06-07] MEDS: Gabapentin 400 MG CAPSULE PO SCH ×2 (09:20→20:52)
[2018-06-07] MEDS: amLODIPine 5 MG TABLET PO SCH (09:21)
[2018-06-07] MEDS: FISH OIL 1000 MG PO SCH (09:23)
[2018-06-07] MEDS: VITAMIN E 100 UNIT PO SCH (09:23)
[2018-06-07] MEDS: traMADol 50 MG TABLET PO PRN ×2 (09:29→17:16)
--- NOTE | 2018-06-07 12:21 | Internal Med Progress Note ---
Date of Encounter: 06/07/18 Time of Encounter: 12:12 - Assessment and plan (1) Status post total knee replacement, right Current Visit: No Status: Acute Assessment and plan: June 05. Continue PT and OT intervention with Lovenox. June 07. Continue present regimen. Anticipate discharge to local SNF tomorrow. (2) Hypertension Current Visit: No Status: Chronic Assessment and plan: June 05. Continue amlodipine, Coreg, and lisinopril Qualifiers: Hypertension type: essential hypertension Qualified Code(s): I10 - Essential (primary) hypertension (3) Neuropathy Current Visit: No Status: Chronic Assessment and plan: June 05. Continue Neurontin. (4) Hypomagnesemia Current Visit: No Status: Acute Assessment and plan: June 05. Resolved. Magnesium level 1.7. (5) DMII (diabetes mellitus, type 2) Current Visit: No Status: Chronic Assessment and plan: June 05. Hemoglobin A1c was 5.9% on 04/20/2018. Continue Glucophage and Accu-Cheks with SSI. Qualifiers: Diabetes mellitus fpc insulin use: unspecified fpc insulin use status Diabetes mellitus complication status: with unspecified complications Qualified Code(s): E11.8 - Type 2 diabetes mellitus with unspecified complications (6) Acute blood loss anemia Current Visit: No Status: Acute Assessment and plan: June 05. Hemoglobin improved to 10.2. Continue to monitor. - Subjective Interval history: June 05. She has no new complaints. June 07. She has no new complaints. She denies cough, dyspnea, or leg pain. - Constitutional Vitals: Temp Pulse Resp BP Pulse Ox 99.0 F 69 16 123/71 96 06/07/18 11:01 06/07/18 11:01 06/07/18 11:01 06/07/18 11:01 06/07/18 11:01 Exam: She is resting comfortably in a chair at bedside with her legs elevated. Right knee incision is clean and dry. There is trace to 1+ edema of the right leg and none of the left leg. Her lungs are clear without wheezes or crackles. I reviewed her medications and lab results. Internal Medicine: Result - Labs CBC & Chem 7: 06/05/18 05:55 Consult Discharge Plan - Plan Referrals: Edie Andrea MD [Primary Care Provider] - 1 week
[2018-06-07] MEDS: *HR* OxyCODONE Immed Rel 5 MG TABLET PO PRN ×2 (14:36→20:52)
[2018-06-07] MEDS: rOPINIRole 0.25 MG TABLET PO SCH (20:51)
[2018-06-08] MEDS: Acetaminophen 325 MG TABLET PO SCH ×2 (04:46→12:13)
[2018-06-08] MEDS: *HR* Enoxaparin 40 MG/0.4 ML SYRINGE SQ SCH (06:25)
[2018-06-08] MEDS: Levothyroxine 25 MCG TABLET PO SCH (06:25)
[2018-06-08] MEDS: *HR* OxyCODONE Immed Rel 5 MG TABLET PO PRN ×2 (06:25→16:35)
[2018-06-08 06:40] VITALS: BP 126/75
[2018-06-08] MEDS: amLODIPine 5 MG TABLET PO SCH (07:51)
[2018-06-08] MEDS: Gabapentin 400 MG CAPSULE PO SCH (07:51)
[2018-06-08] MEDS: *HR* Metformin 500 MG TABLET PO SCH ×2 (07:51→16:36)
[2018-06-08] MEDS: FISH OIL 1000 MG PO SCH (07:52)
[2018-06-08] MEDS: VITAMIN E 100 UNIT PO SCH (07:52)
[2018-06-08] MEDS: traMADol 50 MG TABLET PO PRN (07:54)
--- NOTE | 2018-06-08 12:09 | Discharge Summary ---
Date of Encounter: 06/08/18 Time of Encounter: 11:55 - Discharge Diagnosis (1) Status post total knee replacement, right Priority: Primary Status: Acute (2) Hypertension Priority: Secondary Status: Chronic Qualifiers: Hypertension type: essential hypertension Qualified Code(s): I10 - Essential (primary) hypertension (3) Neuropathy Priority: Secondary Status: Chronic (4) Hypomagnesemia Priority: Secondary Status: Acute (5) DMII (diabetes mellitus, type 2) Priority: Secondary Status: Chronic Qualifiers: Diabetes mellitus terminologist insulin use: unspecified fci insulin use status Diabetes mellitus complication status: with unspecified complications Qualified Code(s): E11.8 - Type 2 diabetes mellitus with unspecified complications (6) Acute blood loss anemia Priority: Secondary Status: Acute Hospital course: Ms. Palacio is a 68 year old female who underwent elective right total knee replacement at [facility] on 05/30/2018. Her postop course was unremarkable except for anemia requiring 2 units packed red blood cells. Following stabilization she was discharged to [facility] swing bed for rehabilitation therapy prior to returning to independent living at home. Initial orders were written by the emergency room physician. I saw her on June 04 and performed the swing bed history and physical. She had physical therapy and occupational therapy evaluation with ongoing intervention. She made satisfactory progress. Lovenox was used for DVT prophylaxis. Social service consult was made because of the patient's homelessness situation. Arrangements were complete on June 08 for her to be discharged to [facility] for ongoing care needs and minimum 90 day stay. She will follow with me there. Hemoglobin improved to 10.2 on 06/05/2018. This will be monitored at the senior care. - Time Spent with Patient Total time spent providing and/or coordinating discharge services: - Discharge Medications Prescriptions: Ascorbic Acid [C-500] 500 mg PO DAILY 30 Days tablet Tramadol HCl [Ultram] 50 - 100 mg PO Q6H PRN 14 Days #112 tablet PRN Reason: Pain Zolpidem Tartrate 5 mg PO HS PRN 14 Days #14 tablet PRN Reason: Sleep Home Medications: SUMAtriptan Succinate [Imitrex] 100 mg PO DAILY PRN 10/23/15 [History] Atorvastatin [Lipitor] 20 mg PO HS 06/15/16 [History] Levothyroxine [Synthroid] 25 mcg PO 0630 06/15/16 [History] Nitroglycerin [Nitrostat] 0.4 mg SL Q5MIN PRN 06/15/16 [History] metFORMIN [Glucophage] 500 mg PO BIDWM 06/15/16 [History] Loratadine [Claritin] 10 mg PO QAM PRN #0 10/25/17 [Rx] Amitriptyline [Elavil] 25 mg PO DAILY 05/30/18 [History] Carvedilol [Coreg] 25 mg PO BID 05/30/18 [History] Donepezil [Aricept] 10 mg PO HS 05/30/18 [History] Ferrous Sulfate [Iron] 325 mg PO DAILY 05/30/18 [History] Gabapentin [Neurontin] 400 mg PO BID 05/30/18 [History] Lisinopril 2.5 mg PO BID 05/30/18 [History] Metoprolol XL (24 HR) Succ [Toprol Xl] 25 mg PO DAILY 05/30/18 [History] Nystatin 1 applic TP BID PRN 05/30/18 [History] [place]-3/Dha/Epa/Fish Oil [Fish Oil Conc 1,000 mg Softgel] 1,000 mg PO DAILY [History] Pantoprazole Sodium 40 mg PO DAILY 05/30/18 [History] Tamoxifen Citrate 20 mg PO DAILY 05/30/18 [History] Tizanidine HCl 4 mg PO Q8H PRN 05/30/18 [History] Venlafaxine [Effexor] 75 mg PO BID 05/30/18 [History] Vitamin E 100 unit PO DAILY 05/30/18 [History] amLODIPine [Norvasc] 7.5 mg PO DAILY 05/30/18 [History] rOPINIRole [Requip] 0.5 mg PO HS 05/30/18 [History] Lidocaine Patch [Lidoderm 5% patch] 1 each TP DAILY adh..patch 06/03/18 [Rx] Ascorbic Acid [C-500] 500 mg PO DAILY 30 Days tablet 06/08/18 [Rx] Enoxaparin [Lovenox] 40 mg SQ 0600 7 Days syringe 06/08/18 [Rx] Tramadol HCl [Ultram] 50 - 100 mg PO Q6H PRN 14 Days #112 tablet 06/08/18 [Rx] Zolpidem Tartrate 5 mg PO HS PRN 14 Days #14 tablet 06/08/18 [Rx] Allergies/Adverse Reactions: 3 Allergy/AdvReac Type Severity Reaction Status Date / Time latex Allergy See Verified 05/30/18 10:53 Comments Date of admission: 06/03/18 17:29 Primary care physician: Edie Andrea Consults: 06/03/18 18:00 Consult to Physical Therapy [CONS] Routine Comment: Evaluate, develop and implement POC Reason for Consult: Presence of artificial knee, left knee replacement Does patient have active BEDREST order?: No Is patient medically & hemodynamically stable?: Yes 06/03/18 18:01 Consult to Occupational Therapy [CONS] Routine Comment: Evaluate, develop and implement POC Reason for Consult: Presence of artificial knee, left knee replacement Does patient have active BEDREST order?: No Is patient medically & hemodynamically stable?: Yes 06/03/18 19:51 Consult to Screwhead Polisher [CONS] Routine Reason for SW Consult: Doesn't have a place to live once she is discharged - Constitutional Vitals: Temp Pulse Resp BP Pulse Ox 98.8 F 74 14 126/75 93 06/08/18 06:35 06/08/18 06:35 06/08/18 06:35 06/08/18 06:35 06/08/18 07:59 - Patient Status Disposition: Transfer SNF - Discharge Instructions Instructions: Chest Pain (DC), Syncope (DC), Chronic Hypertension (DC) - Diet and Activity Activity: as per physical therapy Diet: regular diet
--- NOTE | 2018-06-08 12:28 | Physician Discharge Referral ---
ExtendedCare Referral Info Transfer To: [facility] Provider in Charge: Ned Provider in Charge after Transfer: PCP (Ned) - Diagnosis (1) Status post total knee replacement, right Priority: Primary Status: Acute (2) Hypertension Priority: Secondary Status: Chronic (3) Neuropathy Priority: Secondary Status: Chronic (4) Hypomagnesemia Priority: Secondary Status: Acute (5) DMII (diabetes mellitus, type 2) Priority: Secondary Status: Chronic (6) Acute blood loss anemia Priority: Secondary Status: Acute Prognosis: Good Aware of Diagnosis: Patient Aware of Prognosis: Patient - Transfer Medications Prescriptions: Ascorbic Acid [C-500] 500 mg PO DAILY 30 Days tablet Tramadol HCl [Ultram] 50 - 100 mg PO Q6H PRN 14 Days #112 tablet PRN Reason: Pain Zolpidem Tartrate 5 mg PO HS PRN 14 Days #14 tablet PRN Reason: Sleep Home Medications: SUMAtriptan Succinate [Imitrex] 100 mg PO DAILY PRN 10/23/15 [History] Atorvastatin [Lipitor] 20 mg PO HS 06/15/16 [History] Levothyroxine [Synthroid] 25 mcg PO 0630 06/15/16 [History] Nitroglycerin [Nitrostat] 0.4 mg SL Q5MIN PRN 06/15/16 [History] metFORMIN [Glucophage] 500 mg PO BIDWM 06/15/16 [History] Loratadine [Claritin] 10 mg PO QAM PRN #0 10/25/17 [Rx] Amitriptyline [Elavil] 25 mg PO DAILY 05/30/18 [History] Carvedilol [Coreg] 25 mg PO BID 05/30/18 [History] Donepezil [Aricept] 10 mg PO HS 05/30/18 [History] Ferrous Sulfate [Iron] 325 mg PO DAILY 05/30/18 [History] Gabapentin [Neurontin] 400 mg PO BID 05/30/18 [History] Lisinopril 2.5 mg PO BID 05/30/18 [History] Metoprolol XL (24 HR) Succ [Toprol Xl] 25 mg PO DAILY 05/30/18 [History] Nystatin 1 applic TP BID PRN 05/30/18 [History] Sharon-3/Dha/Epa/Fish Oil [Fish Oil Conc 1,000 mg Softgel] 1,000 mg PO DAILY [History] Pantoprazole Sodium 40 mg PO DAILY 05/30/18 [History] Tamoxifen Citrate 20 mg PO DAILY 05/30/18 [History] Tizanidine HCl 4 mg PO Q8H PRN 05/30/18 [History] Venlafaxine [Effexor] 75 mg PO BID 05/30/18 [History] Vitamin E 100 unit PO DAILY 05/30/18 [History] amLODIPine [Norvasc] 7.5 mg PO DAILY 05/30/18 [History] rOPINIRole [Requip] 0.5 mg PO HS 05/30/18 [History] Lidocaine Patch [Lidoderm 5% patch] 1 each TP DAILY adh..patch 06/03/18 [Rx] Ascorbic Acid [C-500] 500 mg PO DAILY 30 Days tablet 06/08/18 [Rx] Enoxaparin [Lovenox] 40 mg SQ 0600 7 Days syringe 06/08/18 [Rx] Tramadol HCl [Ultram] 50 - 100 mg PO Q6H PRN 14 Days #112 tablet 06/08/18 [Rx] Zolpidem Tartrate 5 mg PO HS PRN 14 Days #14 tablet 06/08/18 [Rx] Allergies/Adverse Reactions: 3 Allergy/AdvReac Type Severity Reaction Status Date / Time latex Allergy See Verified 05/30/18 10:53 Comments - Respiratory Orders Smoking Cessation: Smoking cessation has been advised. For more information, call the [place] Tobacco Quit Line at 6-046-WDHS-NOW. - Lab Orders Lab Orders: Other (include drug levels w/frequency) (CBC with differential in one week and monthly. BMP monthly. Hemoglobin A1c and lipid profile every 3 months.) - Advance Directives Code Status: Full Code - Rehabiliation Orders Rehab Potential: Good Rehab Orders: Evaluation for Physical Therapy, Evaluation for Occupational Therapy - Diet Orders No Concentrated Sweets CERTIFICATION: I certify that the transfer of the above named patient to an Extended Care Facility is necessary for the continuing treatment of the diagnosis listed. The above information is true and accurate reflection of patient's current condition. Confidential - Redisclosure prohibited without a patient's written consent.
== END 2018-06-08 17:37 | DRG 560 ==
LOC: INPPIK 17:29
PROVIDERS: ADMIT Internal Medicine; ATTEND Internal Medicine